=== PATIENT | female | born 1960 ===

== ENCOUNTER 2022-03-08 15:03 | Inpatient (IN) | payer MEDICARE, MEDICAID, SELFPAY ==
[2022-03-08] VITALS (17 sets, daily range): BP systolic 70–141; BP diastolic 38–80; PULSE 61–80; RESP 13–16; TEMP 36.2–37.3; O2SAT 90–97
--- NOTE | 2022-03-08 15:05 | W.PM.HP.N ---
Date of service: 03/08/22 Time of Service: 15:05 Assessment and Plan Assessment and plan (1) Septic shock: Status: Acute Assessment and plan: Due to complicated UTI, present on admission. Continue vancomcyin/zosyn initiated at [facility]. IVF. Continue norepinephrine. Await blood and urine culture results.Trend CRP and procalcitonin. (2) UTI (urinary tract infection): Status: Acute Assessment and plan: Present on admission, complicated by obstructing renal stones, s/p cysto/stent at [facility] today. Abx as above. (3) Obstructive uropathy: Status: Acute Assessment and plan: As above (4) Nephrolithiasis: Status: Chronic Assessment and plan: As above (5) Dehydration: Status: Acute Assessment and plan: IVF (6) DVT prophylaxis: Status: Acute Assessment and plan: SC heparin (7) Discharge planning issues: Status: Acute Assessment and plan: Full code Will attempt to find out re code status. Admit to ICU. Total Critical Care Time 60 minutes. History of Present Illness History of Present Illness Chief Complaint: UTI, Fever Narrative: Ms Shelton is a 61 year old female with PMHx of Down's syndrome, T2DM, psoriasis, dementia with behavioral disturbance, resident of the [facility], who is being transferred to [facility] ICU from [facility] due to lack of ICU beds for septic shock in setting of a UTI, present on admission, associated with two stones within the distal L ureter (5 mm and 6 mm) and mild left-sided hydronpehrosis and hydroureter. The patient had originally presented there with a fever of 102.6 and a BP of 84/40. The patient is s/p cystoscopy and stent by Dr Villagomez, remains hypotensive requiring vasopressors. She was initiated on vancomycin and zosyn. When I ask Dawnita if she has pain, she says yes. She does not tell me where, but does indicate she is uncomfortable when I press on her RLQ. Review of Systems All systems reviewed & are unremarkable except as noted in HPI and below PFSH All Active Problems (Updated 03/08/22 @ 17:09 by Edith Clay MD) Dehydration (Acute) Discharge planning issues (Acute) DVT prophylaxis (Acute) Nephrolithiasis (Chronic) Obstructive uropathy (Acute) UTI (urinary tract infection) (Acute) Septic shock (Acute) Urinary incontinence (Acute) Type 2 diabetes mellitus (Acute) Psoriasis (Chronic) Pain in right knee (Acute) Impairment of balance (Acute) Hypothyroidism (Chronic) Hyperlipidemia (Acute) Hyperglycemia (Acute) Hypercarbia (Acute) Falls (Acute) Dementia with behavioral disturbance (Acute) Complete trisomy 21 syndrome (Acute) Blepharitis (Acute) Surgical History (Updated 03/08/22 @ 15:46 by Edith Clay MD) H/O abdominal surgery Family History (Updated 03/08/22 @ 15:47 by Edith Clay MD) Other ALS (amyotrophic lateral sclerosis) Social History (Updated 03/08/22 @ 15:48 by Edith Clay MD) Smoking/Tobacco Use Status: Never Smoking risk assessment performed?: Yes Alcohol Intake: never Drug use: Never Exam Narrative Exam Narrative: General: Pleasant middle-aged female with Down syndrome, A&Ox1, speech impediment which makes understanding her difficult, but she is alert and speaking. Neurological: A&Ox1, no obvious focal deficits Psychiatric: Appear upbeat Skin: Visible skin dry, intact HEENT: Atraumatic, normocephalic, EOMI, dry MM, clear oropharynx, large neck diameter - hard to assess for thyromegaly or JVD, no lymphadenopathy Cardiovascular: RRR, no m/r/g Lungs: CTAB anteriorly Gastrointestinal: soft, tender in RLQ, nondistended Genitourinary: has a simms Extremities: no edema BLEs, 1+ pedal pulses B, wearing SCDs Results Imaging Additional studies: CXR 03/08/22: mild increased interstitial lung markings bilaterally with appearance most consistent with interstitial edema or CHF. No focal lung consolidation. Can not exclude a mild interstitial pneumonitis. CT chest/abdomen/pelvis w/ contrast 03/08/2022: Mediastinal adenopathy. No acute findings in the chest. There are two stones in the distal left ureter, the proximal measuring 5 mm and the adjacent more inferior stone measuring 6 mm. There is mild left-sided hydronephrosis and hydroureter. There is evidence of bowel wall thickening involving the distal sigmoid colon and rectum. No significant fat stranding. Findings may relate to an infectious, inflammatory, ischemic, or neoplastic process. Labs Labs: Labs on presentation: WBC 19.4 H/H 14.2/42.9 plts 239 Na 135 K4.6 Chloride 99 Bicarb 29 BUN 22 Cr 1.2 Glucose 193 AST 51 ALT 43 LA 2.2 UA: + leucocyte esterase + wbc + rbc + moderate bacteria COVID-19 RNA neg. Time Spent Time spent with Patient: 55-74 minutes Time was spent: preparing to see the patient(eg.review tests), obtaining and/or reviewing separately otained hiistory, ordering medications,tests, procedures, referring, communicating with other health medicare interviewer, indepentently interpreting results, counseling the patient and care coordination
[2022-03-08] MEDS: Norepinephrine in D5W 8 MG/250 ML BAG 35.063 MG IV (16:24)
[2022-03-08] MEDS: Lactated Ringers 500 ML IV (17:24)
[2022-03-08 17:31] LABS: Lactate 2.5 mmol/L (0.6-1.4)
[2022-03-08 17:32] LABS: Abs Immature Grans 0.09 10^3/uL (0.0-0.06); Absolute Lymphocyte Count 1.55 10^3/uL (1.2-3.4); Absolute Monocyte Count 0.39 10^3/uL (0.1-0.8); Basophils % 0.4; Eosinophils % 0.4; HCT 39.9 % (36.0-46.0); Immature Grans % 0.4; Lymphocytes % 6.7; MCH 34.9 pg (27.0-33.0); MCHC 32.6 % (32.0-36.0); MCV 107 fL (80-95); MPV 9.7 fL (8.0-11.0); Monocytes % 1.7; Neutrophils % 90.4; Platelet Count 200 10^3/uL (130-400); RBC 3.73 10^6/uL (3.93-5.22); RDW 15.6 % (11.7-14.6); RDW-SD 61.6 fL; WBC 23.08 10^3/uL (4.4-10.8)
[2022-03-08 17:33] LABS: Absolute Basophil Count 0.09 10^3/uL (0.0-0.2); Absolute Eosinophil Count 0.09 10^3/uL (0.0-0.7); Absolute Neutrophil Count 20.86 10^3/uL (1.2-6.7)
[2022-03-08 17:46] LABS: ALT 45 U/L (14-59); AST 41 U/L (15-37); Albumin 2.4 g/dL (3.4-5.0); Alkaline Phosphatase 138 U/L (46-116); Anion Gap 7.4 mmol/L (3-11); BUN 16 mg/dL (7-18); Bilirubin, Direct 0.2 mg/dL (0.0-0.2); Bilirubin, Total 0.5 mg/dL (0.2-1.0); C-Reactive Protein 18.86 mg/dL (0.0-0.3); CO2 25.6 mmol/L (21.0-32.0); Chloride 105 mmol/L (98-107); Glucose 133 mg/dL (74-106); Magnesium 1.7 mg/dL (1.8-2.4); Potassium 4.1 mmol/L (3.5-5.1); Sodium 138 mmol/L (136-145)
[2022-03-08 17:52] LABS: Anisocytosis 1+; Diff Comment RBC Morph Reviewed; Macrocytosis 2+; Polychromasia Present
[2022-03-08] MEDS: PIPERACILLIN/TAZO 3.375 GM in Normal Saline 50 ML IVPB (18:32)
[2022-03-08] MEDS: Lactated Ringers 1,000 ML 150 ML IV (18:38)
[2022-03-08 20:04] LABS: Lactate 1.9 mmol/L (0.6-1.4)
[2022-03-08] MEDS: MAGNESIUM SULFATE 2 GM/50 ML BAG IVPB (20:10)
[2022-03-08] MEDS: Sertraline 50 MG TAB PO (21:10)
[2022-03-08] MEDS: QUEtiapine 25 MG TAB PO (21:10)
[2022-03-08] MEDS: Donepezil 5 MG TAB PO (21:10)
[2022-03-08] MEDS: Ondansetron 4 MG/2 ML VIAL IVP (21:13)
[2022-03-08] MEDS: Ketorolac 15 MG/ML VIAL IVP (21:13)
[2022-03-08] MEDS: Memantine 5 MG TAB 10 MG PO (22:24)
[2022-03-09] VITALS (23 sets, daily range): BP systolic 96–140; BP diastolic 44–89; PULSE 59–91; RESP 10–19; TEMP 36.3–37.3; O2SAT 92–100
[2022-03-09] MEDS: PIPERACILLIN/TAZO 3.375 GM in Normal Saline 50 ML IVPB ×3 (01:18→18:27)
[2022-03-09] MEDS: VANCOMYCIN/WATER (PEG) 750 MG/150 ML BAG 150 MG IV (01:18)
[2022-03-09] MEDS: Normal Saline Flush 10 ML SYR (01:54)
[2022-03-09 06:27] LABS: Lactate 0.9 mmol/L (0.6-1.4)
[2022-03-09] MEDS: Levothyroxine 100 MCG TAB PO (06:27)
[2022-03-09] MEDS: Levothyroxine 88 MCG TAB PO (06:27)
[2022-03-09 06:35] LABS: Abs Immature Grans 0.09 10^3/uL (0.0-0.06); Basophils % 0.6; Eosinophils % 1.5; HCT 37.8 % (36.0-46.0); HGB 12.5 g/dL (11.2-15.7); Immature Grans % 0.5; Lymphocytes % 9.4; MCH 34.9 pg (27.0-33.0); MCHC 33.1 % (32.0-36.0); MCV 106 fL (80-95); MPV 9.6 fL (8.0-11.0); Monocytes % 2.2; Neutrophils % 85.8; Platelet Count 204 10^3/uL (130-400); RBC 3.58 10^6/uL (3.93-5.22); RDW 15.1 % (11.7-14.6); WBC 18.07 10^3/uL (4.4-10.8)
[2022-03-09 06:37] LABS: Absolute Basophil Count 0.11 10^3/uL (0.0-0.2); Absolute Eosinophil Count 0.27 10^3/uL (0.0-0.7)
[2022-03-09 06:54] LABS: ALT 35 U/L (14-59); AST 32 U/L (15-37); Albumin 2.2 g/dL (3.4-5.0); Alkaline Phosphatase 131 U/L (46-116); Anion Gap 7.6 mmol/L (3-11); BUN 12 mg/dL (7-18); Bilirubin, Direct 0.1 mg/dL (0.0-0.2); Bilirubin, Total 0.4 mg/dL (0.2-1.0); CO2 25.4 mmol/L (21.0-32.0); CREATININE 0.9 mg/dL (0.55-1.02); Calcium 7.9 mg/dL (8.5-10.1); Chloride 107 mmol/L (98-107); Estimated GFR 72.28 (mL/min/1.73m2); Glucose 167 mg/dL (74-106); Sodium 140 mmol/L (136-145); Total Protein 6.5 g/dL (6.4-8.2)
[2022-03-09 07:03] LABS: Magnesium 2.1 mg/dL (1.8-2.4); TSH (W/Ref FT4) 1.41 uIU/mL (0.36-3.74)
[2022-03-09 07:43] LABS: Procalcitonin 4.6 ng/mL
[2022-03-09] MEDS: Aspirin E.C. 81 MG TABEC PO (08:48)
[2022-03-09] MEDS: Memantine 5 MG TAB 10 MG PO ×2 (08:48→20:55)
--- NOTE | 2022-03-09 10:18 | PGE_ITS ---
Date of Service Date of service: 03/09/22 Time of Service: 10:18 Assessment and Plan Assessment and plan (1) Septic shock: Status: Resolved Assessment and plan: no longer in septic shock. Stable BP, U.O. adequate but marginal, creatinine and LFT ok. Cognitively she seems back to her baseline. She is now off vasopressors. I will continue iv fluids. She could be downgraded to med/surg status at this point. coninue w/ broad spectrum antibiotics (Zosyn and Vancomycin) pending her urine and blood culture results from [facility]. (2) Obstructive uropathy: Status: Acute Assessment and plan: s/p cystoureteroscopy and stenting of left distal ureter performed at [facility] by Dr. Villagomez. Will have her follow up w/ him next week after she is discharged (3) UTI (urinary tract infection): Status: Acute Assessment and plan: as above (4) Nephrolithiasis: Status: Chronic Assessment and plan: as above (5) Dehydration: Status: Acute Assessment and plan: continue LR at low rate of 85 mL/hr to maintain adequate U.O., when I am certain that she is taking enough po then can stop iv fluids (6) Type 2 diabetes mellitus: Status: Acute Assessment and plan: Bolus insulin per sliding scale per micro blood sugars before meals and at bedtime, resume diabetic diet (7) DVT prophylaxis: Status: Acute Assessment and plan: Enoxaparin 40 mg subcutaneously daily (8) Discharge planning issues: Status: Acute Subjective Subjective Interval history since last seen: Raysa denies any pain. Tolerating a regular DM diet. Urine output adequate but w/ clots, blood. She remains on zosyn and vancomycin pending blood and urine culture results from [facility]. She is s/p ureteroscopy and stenting for left distal ureteral obstruction from two stones (5 mm and 6 mm). BP is stable and she is off norepinephrine now. Exam Narrative Exam Narrative: She is alert and oriented to person; she has Down's syndrome and unable to give me much details as to her medical hx. But she is awake, watching TV and coloring in her coloring book Lungs: clear to auscultation Heart: RRR w/o murmur or rub Abdomen: soft, nontender Flanks: no CVA tenderness Legs/feet: no edema or pain Guzman w/ dark reddish brown urine w/ clots Objective Last Vital Signs Temp 36.5 C 03/09/22 08:00 Pulse 75 03/09/22 09:00 Resp 14 03/09/22 09:00 BP 115/62 03/09/22 09:00 Pulse Ox 97 03/09/22 09:00 Laboratory Results - last 24 hr 03/08/22 03/08/22 03/08/22 17:23 17:23 17:23 WBC 23.08 H RBC 3.73 L Hgb 13.0 Hct 39.9 MCV 107 H MCH 34.9 H MCHC 32.6 RDW 15.6 H Plt Count 200 MPV 9.7 Immature Gran % 0.4 Neutrophils % 90.4 Lymphocytes % 6.7 Monocytes % 1.7 Eosinophils % 0.4 Basophils % 0.4 Nucleated RBC % 0.0 Absolute Neutrophils 20.86 H Absolute Lymphocytes 1.55 Absolute Monocytes 0.39 Absolute Eosinophils 0.09 Absolute Basophils 0.09 RBC Morphology See Below Polychromasia Present Anisocytosis 1+ Macrocytosis 2+ VBG Lactate 2.5 H* Sodium 138 Potassium 4.1 Chloride 105 Carbon Dioxide 25.6 Anion Gap 7.4 BUN 16 Creatinine 1.0 Est GFR (CKD-EPI 2020) 63.70 Glucose 133 H Calcium 8.0 L Magnesium 1.7 L Total Bilirubin 0.5 Conjugated Bilirubin 0.2 AST 41 H ALT 45 Alkaline Phosphatase 138 H C-Reactive Protein 18.86 H Total Protein 7.0 Albumin 2.4 L Procalcitonin TSH 03/08/22 03/09/22 03/09/22 19:59 06:16 06:16 WBC RBC Hgb Hct MCV MCH MCHC RDW Plt Count MPV Immature Gran % Neutrophils % Lymphocytes % Monocytes % Eosinophils % Basophils % Nucleated RBC % Absolute Neutrophils Absolute Lymphocytes Absolute Monocytes Absolute Eosinophils Absolute Basophils RBC Morphology Polychromasia Anisocytosis Macrocytosis VBG Lactate 1.9 H Sodium Potassium Chloride Carbon Dioxide Anion Gap BUN Creatinine Est GFR (CKD-EPI 2020) Glucose Calcium Magnesium 2.1 Total Bilirubin Conjugated Bilirubin AST ALT Alkaline Phosphatase C-Reactive Protein Total Protein Albumin Procalcitonin 4.6 TSH 1.41 03/09/22 03/09/22 03/09/22 06:16 06:16 06:16 WBC 18.07 H RBC 3.58 L Hgb 12.5 Hct 37.8 MCV 106 H MCH 34.9 H MCHC 33.1 RDW 15.1 H Plt Count 204 MPV 9.6 Immature Gran % 0.5 Neutrophils % 85.8 Lymphocytes % 9.4 Monocytes % 2.2 Eosinophils % 1.5 Basophils % 0.6 Nucleated RBC % 0.0 Absolute Neutrophils 15.50 H Absolute Lymphocytes 1.70 Absolute Monocytes 0.40 Absolute Eosinophils 0.27 Absolute Basophils 0.11 RBC Morphology Polychromasia Anisocytosis Macrocytosis VBG Lactate 0.9 Sodium 140 Potassium 4.0 Chloride 107 Carbon Dioxide 25.4 Anion Gap 7.6 BUN 12 Creatinine 0.9 Est GFR (CKD-EPI 2020) 72.28 Glucose 167 H Calcium 7.9 L Magnesium Total Bilirubin 0.4 Conjugated Bilirubin 0.1 AST 32 ALT 35 Alkaline Phosphatase 131 H C-Reactive Protein Total Protein 6.5 Albumin 2.2 L Procalcitonin TSH Time Spent with Patient Time Spent with Patient: 35-49 minutes Time was spent: preparing to see the patient(eg.review tests), obtaining and/or reviewing separately otained hiistory, ordering medications,tests, procedures, referring, communicating with other health animal caretaker supervisor, indepentently interpreting results and care coordination
[2022-03-09] MEDS: Lactated Ringers 1,000 ML 80 ML IV (11:15)
[2022-03-09] MEDS: Enoxaparin 40 MG/0.4 ML SYR SC (12:20)
[2022-03-09 14:25] LABS: Source Nasal/Nares
[2022-03-09 14:58] LABS: COVID-19 PCR Negative (Negative)
[2022-03-09] MEDS: VANCOMYCIN/WATER (PEG) 750 MG/150 ML BAG 100 MG IV (14:59)
--- NOTE | 2022-03-09 15:41 | PDOC.CMIN ---
- If Service Date Differs Date of service: 03/09/22 Time of Service: 15:41 Care Management Initial Assess REASON FOR HOSPITALIZATION:: Septic shock complicated UTI, obstructive uropathy PAST MEDICAL HISTORY/PAST SURGICAL HISTORY:: All Active Problems. Dehydration (Acute). Discharge planning issues (Acute). DVT prophylaxis (Acute). Nephrolithiasis (Chronic). Obstructive uropathy (Acute). UTI (urinary tract infection) (Acute). Septic shock (Acute). Urinary incontinence (Acute). Type 2 diabetes mellitus (Acute). Psoriasis (Chronic). Pain in right knee (Acute). Impairment of balance (Acute). Hypothyroidism (Chronic). Hyperlipidemia (Acute). Hyperglycemia (Acute). Hypercarbia (Acute). Falls (Acute). Dementia with behavioral disturbance (Acute). Complete trisomy 21 syndrome (Acute). Blepharitis (Acute). Surgical History. H/O abdominal surgery PREVIOUS FUNCTIONAL STATUS/SOCIAL/FAMILY SUPPORTS:: Raysa lives at [facility] in [place], where she receives all of her care. Her guardian is her brother, Gilberto Shelton. CURRENT FUNCTIONAL STATUS:: Raysa was sitting up in her bed when CM met with her. She engaged with eye contact during conversation, and answered some questions. She was coloring with crayons, and appeared to be enjoying that activity. Per RN, her brother called this morning and spoke to her over the phone. Her RN also communicated with staff from [facility]. Once she is medically cleared for discharge, CM will coordinate her return to [facility]. CM will continue to follow. ADVANCE DIRECTIVES:: Not on file at [facility]. Has patient been provided with info about the portal/API?: No Did the patient sign up for the portal?: No CODE STATUS:: Full Code INSURANCE COVERAGE / FINANCIAL ISSUES:: [facility] CURRENT HOME/COMMUNITY SERVICES/EQUIPMENT:: Resides at [facility]. PRIMARY CARE PHYSICIAN:: Facility provider, [facility] POTENTIAL DISCHARGE NEEDS:: Coordinated return to [facility]. PATIENT/FAMILY EDUCATION NEEDS:: Review discharge instructions with facility through RN to RN prior to discharge, as well as guardian. ANTICIPATED BARRIERS TO DISCHARGE:: None identified at this time. TRANSPORTATION:: To be determined, based on mobility at time of discharge. PLAN:: Anticipate Raysa will return to [facility] once medically cleared. She will transport via EMS vs [facility] W[facility] van, depending on presentation. She will follow up with facility providers and discharge plan of care. CM will continue to follow.
[2022-03-09] MEDS: QUEtiapine 25 MG TAB PO (20:56)
[2022-03-09] MEDS: Donepezil 5 MG TAB PO (20:56)
[2022-03-09] MEDS: Sertraline 50 MG TAB PO (20:56)
[2022-03-09] MEDS: Ketorolac 15 MG/ML VIAL IVP (20:56)
[2022-03-10] MEDS: PIPERACILLIN/TAZO 3.375 GM in Normal Saline 50 ML IVPB (02:00)
[2022-03-10 05:00] VITALS: BP 115/84; PULSE 91; RESP 19; TEMP 37.5; O2SAT 95
[2022-03-10] MEDS: Levothyroxine 88 MCG TAB PO (06:01)
[2022-03-10] MEDS: Levothyroxine 100 MCG TAB PO (06:01)
[2022-03-10 06:46] LABS: Abs Immature Grans 0.05 10^3/uL (0.0-0.06); Absolute Basophil Count 0.08 10^3/uL (0.0-0.2); Absolute Lymphocyte Count 1.41 10^3/uL (1.2-3.4); Absolute Monocyte Count 0.27 10^3/uL (0.1-0.8); Basophils % 0.6; Eosinophils % 0.5; HCT 36.3 % (36.0-46.0); HGB 11.6 g/dL (11.2-15.7); Immature Grans % 0.4; MCV 107 fL (80-95); MPV 10.4 fL (8.0-11.0); Monocytes % 2.1; Neutrophils % 85.4; Nucleated RBC 0.2 % (0.0-0.3); Platelet Count 194 10^3/uL (130-400); RBC 3.41 10^6/uL (3.93-5.22); RDW 15.4 % (11.7-14.6); RDW-SD 60.6 fL
[2022-03-10 06:54] LABS: Absolute Eosinophil Count 0.06 10^3/uL (0.0-0.7); Absolute Neutrophil Count 10.93 10^3/uL (1.2-6.7)
[2022-03-10 06:55] LABS: ALT 35 U/L (14-59); AST 30 U/L (15-37); Albumin 2.1 g/dL (3.4-5.0); Alkaline Phosphatase 208 U/L (46-116); BUN 16 mg/dL (7-18); Bilirubin, Total 0.4 mg/dL (0.2-1.0); CREATININE 1.1 mg/dL (0.55-1.02); Calcium 7.9 mg/dL (8.5-10.1); Chloride 105 mmol/L (98-107); Estimated GFR 56.81 (mL/min/1.73m2); Glucose 176 mg/dL (74-106); Potassium 4.2 mmol/L (3.5-5.1); Sodium 137 mmol/L (136-145); Total Protein 6.7 g/dL (6.4-8.2)
[2022-03-10 08:00] VITALS: BP 124/63; PULSE 91; PULSE 98; RESP 15; TEMP 37.3; O2SAT 92
[2022-03-10] MEDS: Aspirin E.C. 81 MG TABEC PO (08:43)
[2022-03-10] MEDS: Memantine 5 MG TAB 10 MG PO ×2 (08:43→20:45)
--- NOTE | 2022-03-10 09:45 | W.PM.PROGNOT ---
Date of Service Date of service: 03/10/22 Time of Service: 09:45 Assessment and Plan Assessment and plan (1) Septic shock: Status: Resolved Assessment and plan: No longer in shock. She has a stable blood pressures been off vasopressors for over 24 hours. Patient was written to be transferred to medical/surgical floor yesterday however due to lack of staffing she is remained in the intensive care unit as a medical/surgical floor patient. She remains on Zosyn pending sensitivity results of her urine and blood cultures from [facility]. Vancomycin was discontinued. Professional time spent interviewing and examining patient, discussion of goals of care with hospital team (care management, nursing and consulting professionals) was 20 minutes. (2) Obstructive uropathy: Status: Acute Assessment and plan: s/p cystoureteroscopy and stenting of left distal ureter performed at [facility] by Dr. Villagomez. We will asked Dr. Nick to evaluate the patient given her continued hematuria (3) UTI (urinary tract infection): Status: Acute Assessment and plan: as above (4) Nephrolithiasis: Status: Chronic Assessment and plan: as above (5) Dehydration: Status: Resolved Assessment and plan: We will discontinue her IV fluids as she is having an urine output and taking an good oral fluid intake (6) Type 2 diabetes mellitus: Status: Acute Assessment and plan: Bolus insulin per sliding scale per micro blood sugars before meals and at bedtime, resume diabetic diet (7) DVT prophylaxis: Status: Acute Assessment and plan: Enoxaparin 40 mg subcutaneously daily (8) Discharge planning issues: Status: Acute Assessment and plan: Return to [facility] once she is medically stable Subjective Subjective Interval history since last seen: Patient did well overnight no acute complaints. Patient is tolerating her diet but does require frequent cueing to chew her food and swallow be for taking another bite. Only respiratory issues overnight is that she does seem to have some sleep apnea and when she is not wearing her oxygen her pulse oximetry will drop down into the high 60s and low 70s. Because of her Down syndrome she frequently pulls off her pulse oximetry and nursing has been unable to keep a peripheral IV in. Patient does have a left subclavian central line from when she presented with septic shock. Patient continues to receive antibiotics including Zosyn for E. coli sepsis secondary to complicated UTI from recent ureteroscopy to remove left distal ureteral stones. As of yesterday blood culture results are still pending. All cultures were obtained at [facility] where she had her cystoscopy ureteroscopy by Dr. Villagomez. Patient continues to have bloody drainage from her urinary catheter. Exam Narrative Exam Narrative: Middle-aged white female with Down's facies she is alert oriented to person she is able to express her wishes as far as her food choices. She is feeding herself and seems to be tolerating regular foods. Lungs with some fine bibasilar rales no rhonchi or wheezing Heart is regular rate and rhythm Abdomen soft nontender nondistended Extremities without peripheral edema Objective Last Vital Signs Temp 37.3 C 03/10/22 08:00 Pulse 91 H 03/10/22 08:00 Resp 15 03/10/22 08:00 BP 124/63 03/10/22 08:00 Pulse Ox 92 03/10/22 08:00 Laboratory Results - last 24 hr 03/09/22 03/10/22 03/10/22 01:13 05:50 05:50 WBC 12.80 H RBC 3.41 L Hgb 11.6 Hct 36.3 MCV 107 H MCH 34.0 H MCHC 32.0 RDW 15.4 H Plt Count 194 MPV 10.4 Immature Gran % 0.4 Neutrophils % 85.4 Lymphocytes % 11.0 Monocytes % 2.1 Eosinophils % 0.5 Basophils % 0.6 Nucleated RBC % 0.2 Absolute Neutrophils 10.93 H Absolute Lymphocytes 1.41 Absolute Monocytes 0.27 Absolute Eosinophils 0.06 Absolute Basophils 0.08 Sodium 137 Potassium 4.2 Chloride 105 Carbon Dioxide 26.0 Anion Gap 6.0 BUN 16 Creatinine 1.1 H Est GFR (CKD-EPI 2020) 56.81 Glucose 176 H Calcium 7.9 L Total Bilirubin 0.4 AST 30 ALT 35 Alkaline Phosphatase 208 H Total Protein 6.7 Albumin 2.1 L COVID-19 Source Nasal/Nares SARS-CoV-2 (PCR) Negative Time Spent with Patient Time Spent with Patient: <25 minutes Time was spent: preparing to see the patient(eg.review tests), obtaining and/or reviewing separately otained hiistory, ordering medications,tests, procedures, indepentently interpreting results and care coordination
[2022-03-10] MEDS: PIPERACILLIN/TAZO 4.5 GM in Normal Saline 100 ML IVPB ×2 (11:22→17:56)
[2022-03-10 12:00] VITALS: BP 90/49; PULSE 73; RESP 16; TEMP 35.3; O2SAT 88
[2022-03-10] MEDS: Enoxaparin 40 MG/0.4 ML SYR SC (12:19)
[2022-03-10] MEDS: Insulin Aspart 300 UNITS/3 ML PEN SC ×3 (12:20→22:29)
[2022-03-10 15:00] VITALS: PULSE 77
[2022-03-10 16:00] VITALS: BP 108/56; PULSE 85; RESP 19; TEMP 35.9; O2SAT 91
[2022-03-10] MEDS: Furosemide 20 MG/2 ML VIAL IVP (17:31)
[2022-03-10] MEDS: Albuterol 2.5 MG/3 ML INH SOLN VIAL UPD (18:45)
[2022-03-10] MEDS: Donepezil 5 MG TAB PO (20:45)
[2022-03-10] MEDS: Ketorolac 15 MG/ML VIAL IVP (20:45)
[2022-03-10] MEDS: Sertraline 50 MG TAB PO (20:45)
[2022-03-10] MEDS: QUEtiapine 25 MG TAB PO (20:46)
[2022-03-11] VITALS (24 sets, daily range): BP systolic 89–132; BP diastolic 36–96; PULSE 68–113; RESP 8–30; TEMP 35.9–36.8; O2SAT 79–97
[2022-03-11] MEDS: PIPERACILLIN/TAZO 4.5 GM in Normal Saline 100 ML IVPB (02:32)
[2022-03-11] MEDS: Levothyroxine 88 MCG TAB PO (06:31)
[2022-03-11] MEDS: Levothyroxine 100 MCG TAB PO (06:31)
[2022-03-11 06:35] LABS: Abs Immature Grans 0.06 10^3/uL (0.0-0.06); Absolute Basophil Count 0.08 10^3/uL (0.0-0.2); Absolute Lymphocyte Count 1.23 10^3/uL (1.2-3.4); Absolute Neutrophil Count 9.03 10^3/uL (1.2-6.7); Basophils % 0.7; Eosinophils % 1.7; HCT 34.9 % (36.0-46.0); HGB 11.4 g/dL (11.2-15.7); Immature Grans % 0.6; Lymphocytes % 11.3; MCH 34.5 pg (27.0-33.0); MCHC 32.7 % (32.0-36.0); MCV 106 fL (80-95); MPV 10.1 fL (8.0-11.0); Monocytes % 2.8; Neutrophils % 82.9; Platelet Count 181 10^3/uL (130-400); RDW-SD 58.4 fL; WBC 10.89 10^3/uL (4.4-10.8)
[2022-03-11 06:37] LABS: Absolute Eosinophil Count 0.19 10^3/uL (0.0-0.7)
[2022-03-11 06:46] LABS: Anion Gap 4.7 mmol/L (3-11); BUN 18 mg/dL (7-18); CO2 28.3 mmol/L (21.0-32.0); Chloride 105 mmol/L (98-107); Glucose 164 mg/dL (74-106); Potassium 4.2 mmol/L (3.5-5.1); Sodium 138 mmol/L (136-145)
[2022-03-11 07:39] LABS: Procalcitonin 2.5 ng/mL
--- NOTE | 2022-03-11 08:36 | CMPROGNOTE_ITS ---
- If Service Date Differs Date of service: 03/11/22 Time of Service: 08:36 Care Management Progress Note S/O:Raysa is in the ICU although she is Med-surg status. Her blood pressures have been low with SBP in the 80s and 90s. Raysa remains confused and will only answer simple questions. When CM met with her she smiled but only gave one word answers to questions. She did tell CM and her nurse that she had to go to the bathroom, but has a simms catheter. After being hypotensive last night, Raysa was given a fluid bolus, after which her oxygen needs increased and her O2 satsl dropped into the high 80s. A chest Xray has been ordered. A: Raysa is a 61 year old woman admitted on 03/08/22 with septic shock and Uti P:Anticipate Raysa will return to [facility] once medically cleared. She will transport via EMS vs [facility] W[facility] van, depending on presentation. She will follow up with facility providers and discharge plan of care. CM will continue to follow.
[2022-03-11] MEDS: Memantine 5 MG TAB 10 MG PO ×2 (08:52→21:13)
[2022-03-11] MEDS: Aspirin E.C. 81 MG TABEC PO (08:52)
[2022-03-11] MEDS: Lactated Ringers 500 ML IV (08:53)
--- NOTE | 2022-03-11 09:04 | W.PM.PROGNOT ---
Date of Service Date of service: 03/11/22 Time of Service: 09:04 Assessment and Plan Assessment and plan (1) Obstructive uropathy: Status: Acute Assessment and plan: s/p cystoureteroscopy and stenting of left distal ureter performed at [facility] by Dr. Villagomez. As her hematuria is improving and she has good urine output and already has her stents, I see no need for consult w/ Dr. Nick at present. Patient can follow up w/ Dr. Villagomez at [facility] upon return to [facility]. Professional time spent interviewing and examining patient, discussion of goals of care with hospital team (care management, nursing and consulting professionals) was 35 minutes. (2) UTI (urinary tract infection): Status: Acute Assessment and plan: Patient presented in sepsis and was on vasopressors on admission but has been off vasopressors since 03/09. her BP was slightly low overnight but probably d/t inappropriate diuretic last night. I have ordered 500 mL bolus of LR this morning. She remains on Zosyn for E. coli UTI from ureterolithiasis causing left distal ureteral obstruction which has been relieved w/ cystourteroscopy and stent. I have asked nursing to obtain the finalized urine and blood cultures from [facility] so I can switch her to oral antibiotics upon discharge to [facility]. I would keep her on parenteral antibiotics for 7 days or until her inflammatory markers have normalized then complete oral antibiotics for total of 10 to 14 days. (3) Nephrolithiasis: Status: Chronic Assessment and plan: as above (4) Type 2 diabetes mellitus: Status: Acute Assessment and plan: Bolus insulin per sliding scale per micro blood sugars before meals and at bedtime, resume diabetic diet (5) DVT prophylaxis: Status: Acute Assessment and plan: Enoxaparin 40 mg subcutaneously daily (6) Discharge planning issues: Status: Acute Assessment and plan: Return to [facility] once she is medically stable and completed iv antibiotics. I anticipate discharge latter part of this week, i.e. or Friday. Subjective Subjective Interval history since last seen: Raysa had soft BP overnight w/ MAP of 60, SBP high 80's to low 90's. She did get one time dose of lasix yesterday evening for low U.O. and reported wet sounding lungs per nursing. Patient does require oxygen when sleeping, she likely has JESSICA/OHS. During the day she does not require oxygen supplementation when she is awake. We are awaiting final sensitivity on her urine culture from [facility] and her blood culture was still pending. Her inflammatory markers are improving but are still elevated (procalcitonin of 2.5, WBC 10,890). She remains on Zosyn, although I stopped her Vancomycin over the weekend. Exam Narrative Exam Narrative: Raysa has no acute complaints. She ate well for breakfast She is alert and oriented to person Lungs: clear Heart: RRR Abdomen: obese, soft, nontender, she had large soft light brown BM this morning Buttocks/sacral skin is intact Guzman is starting to clear, still some clots/debris but more yellow, not the pink/red color it was over the weekend Objective Last Vital Signs Temp 36.6 C 03/11/22 06:37 Pulse 76 03/11/22 07:50 Resp 15 03/11/22 07:50 BP 89/46 L 03/11/22 07:50 Pulse Ox 96 03/11/22 07:50 Laboratory Results - last 24 hr 03/11/22 03/11/22 03/11/22 06:15 06:15 06:15 WBC 10.89 H RBC 3.30 L Hgb 11.4 Hct 34.9 L MCV 106 H MCH 34.5 H MCHC 32.7 RDW 15.0 H Plt Count 181 MPV 10.1 Immature Gran % 0.6 Neutrophils % 82.9 Lymphocytes % 11.3 Monocytes % 2.8 Eosinophils % 1.7 Basophils % 0.7 Nucleated RBC % 0.0 Absolute Neutrophils 9.03 H Absolute Lymphocytes 1.23 Absolute Monocytes 0.30 Absolute Eosinophils 0.19 Absolute Basophils 0.08 Sodium 138 Potassium 4.2 Chloride 105 Carbon Dioxide 28.3 Anion Gap 4.7 BUN 18 Creatinine 1.0 Est GFR (CKD-EPI 2020) 63.70 Glucose 164 H Calcium 8.0 L Procalcitonin 2.5 Time Spent with Patient Time Spent with Patient: 35-49 minutes Time was spent: preparing to see the patient(eg.review tests), ordering medications,tests, procedures, referring, communicating with other health manager critical care unit, indepentently interpreting results and care coordination
--- NOTE | 2022-03-11 09:48 | PHA.REVIEW2 ---
Pharmacy Admission Review - Admission Clinical Review Discharge planning issues (Acute) DVT prophylaxis (Acute) Obstructive uropathy (Acute) UTI (urinary tract infection) (Acute) Type 2 diabetes mellitus (Acute) No Known Allergies Allergy (Unverified 03/08/22 19:58) Resuscitation Status Full Code Height 4 ft 9 in Weight 102.1 kg - Renal Dosing Renal Dosing: BUN 18 mg/dL (7-18) 03/11/22 06:15 Creatinine 1.0 mg/dL (0.55-1.02) 03/11/22 06:15 Medications needing adjustments: Reviewed List of meds needing interventions: eCrCl 56 ml/min - Anticoagulation Anticoagulation: Hgb 11.4 g/dL (11.2-15.7) 03/11/22 06:15 Hct 34.9 % (36.0-46.0) L 03/11/22 06:15 Plt Count 181 10^3/uL (130-400) 03/11/22 06:15 Creatinine 1.0 mg/dL (0.55-1.02) 03/11/22 06:15 DVT Prophylaxis: Reviewed Medications: Enoxaparin - Opiate Usage Evaluate Pain Scale/Pains Meds: N/A - Relevant Labs Sodium 138 mmol/L (136-145) 03/11/22 06:15 Potassium 4.2 mmol/L (3.5-5.1) 03/11/22 06:15 Chloride 105 mmol/L (98-107) 03/11/22 06:15 Magnesium 2.1 mg/dL (1.8-2.4) 03/09/22 06:16 C-Reactive Protein 18.86 mg/dL (0.0-0.3) H 03/08/22 17:23 Electrolytes, C-Reactive P, ESR: Reviewed - DM Control DM Control: Glucose 164 mg/dL (74-106) H 03/11/22 06:15 Finger Stick Blood Glucose 129 Finger Stick Blood Glucose 149 DM Control: Reviewed (aspart per SS (sensitive)) - Cardiac Review BP, HR, EF%: Reviewed - Qtc Review QTc: N/A - IV to PO Switch IV Medications: Reviewed (plan on IV antibiotics (zosyn) for 7 days before changing to PO) - Home Meds Home Med List reviewed: Reviewed Relevent Home Meds Not ordered & why?: from [facility], all ordered - Current meds Current Medication Order Review: Reviewed (Zosyn was started on 03/08, today is day 4)
[2022-03-11] MEDS: Enoxaparin 40 MG/0.4 ML SYR SC (12:02)
[2022-03-11] MEDS: cefTRIAXone 2 GM/50 ML BAG IVPB (12:02)
[2022-03-11] MEDS: Insulin Aspart 300 UNITS/3 ML PEN SC ×3 (12:21→21:15)
[2022-03-11] MEDS: Albuterol 2.5 MG/3 ML INH SOLN VIAL UPD (13:04)
--- NOTE | 2022-03-11 13:28 | DI.RAD_ITS ---
Exam(s) XR PORTABLE CHEST AP EXAM: XR PORTABLE CHEST AP CLINICAL HISTORY: hypoxia TECHNIQUE: 2D digital imaging was performed of the chest. One image was obtained. An AP view was ob tained. COMPARISON: No exams were available for comparison FINDINGS: MEDIASTINUM: Normal. HEART: Upper limits of normal to mildly enlarged. PULMONARY VASCULATURE: The pulmonary vasculature is indistinct. LUNGS: Bilateral interstitial infiltrates are present. PLEURAL SPACE: There is blunting of the right costophrenic angle suggesting a right pleural effusion. No definite left pleural effusion is seen. No pneumothorax is present. BONE:Within normal limits for the patient's age. OTHER FINDINGS:Normal. IMPRESSION: Congestive heart failure versus pneumonia. Please correlate clinically. DATA REPOSITORY: RADIATION DOSE DELIVERED:
[2022-03-11 13:53] LABS: BE 1 mmol/L (-2-3); HCO3 26 mmol/L (22-26); pCO2 40 mmHg (35-45); pH 7.42 (7.35-7.45); pO2 59 mmHg (80-105); sO2 92 % (95-98); tCO2 23 mmol/L (23-27)
[2022-03-11 13:55] LABS: FIO2L 6 L; Site Right Radial
[2022-03-11 13:58] LABS: D-Dimer 1899 ng/mlFEU (<500)
--- NOTE | 2022-03-11 14:15 | DI.CT_ITS ---
Exam(s) CT CHEST PE CTA EXAM: CT CHEST PE CTA CLINICAL HISTORY: dyspnea, hypoxia, elevated d-dimer. TECHNIQUE: Imaging Protocol: Axial CT angiography was performed with multi-slice acquisition and mu lti-planar and/or 3D reconstructions. CONTRAST MATERIAL: Intravenous: Omnipaque 350 contrast volume:100 mL COMPARISON: CR XR PORTABLE CHEST AP from 03/11/2022 FINDINGS: The examination is limited due to patient motion artifact. Tracheobronchial tree: Patent where visualized. Pulmonary parenchyma: Multifocal infiltrates are present. There are moderately large bilateral pleur al effusions and subjacent infiltrates which may represent atelectasis or pneumonia. No architectura l distortion. Pulmonary Arteries: No evidence of filling defect to suggest pulmonary emboli. Mediastinum and Radha: No dominant adenopathy or fluid collection. The esophagus is unremarkable. Visualized thyroid gland: Unremarkable. Pleura: No pneumothorax. Heart: Mildly enlarged. No coronary artery calcifications are seen. No pericardial effusion. Aorta: Thoracic aorta non-dilated. No evidence of dissection. Mild atherosclerosis. Upper abdomen: Unremarkable. Tubes, Catheters, and Lines: The tip of the central venous catheter is in good position in the superi or vena cava. Soft tissues: There is mild edema in the soft tissues around the abdomen. Bones: Within normal limits for the patient's age. IMPRESSION: 1. No evidence of pulmonary embolism, thoracic aortic dissection or aneurysm. 2. Mild cardiomegaly and large bilateral pleural effusions suspicious for congestive heart failure. 3. Bilateral pulmonary infiltrates. Differential considerations include pulmonary edema or pneumonia . Please correlate clinically. 4. Findings were discussed with Dr. Foster at 4:35 p.m. on 03/11/2022. RADIATION DOSE DELIVERED: Total DLP DATA REPOSITORY: All CT scans at this facility are submitted to the National Radiology Data Registry (NRDR) Dose Index Registry (DIR) with the [employer] (A[employer]). RADIATION OPTIMIZATION: All CT scans at this facility use at least one of these dose optimization te chniques: automated exposure control; mA and/or kV adjustment per patient size (includes targeted exa ms where dose is matched to clinical indication); or iterative reconstruction.
--- NOTE | 2022-03-11 14:45 | RT.EKG_ITS ---
APPROVED REPORT Exam: Resting ECG Reason for Exam: dyspnea, hypoxemia Patient Location: I HR:101 bpm ECG Measurements Heart Rate 101 AXIS VT 167 P 61 QRSd 86 QRS 85 QT 367 T -6 QTc 476 Conclusion Sinus tachycardia...rate> 99 Probable left atrial enlargement...P >50mS, <-0.10mV V1 Borderline right axis deviation...QRS axis ( 81, 90) Borderline T abnormalities, anterior leads...T flat or neg, V2-V4
[2022-03-11] MEDS: Normal Saline Flush 10 ML SYR ×3 (14:53→18:18)
[2022-03-11 15:26] LABS: NT-proBNP 2645 pg/mL (<300)
[2022-03-11 15:32] LABS: Troponin I 112 ng/L (<or=60)
[2022-03-11] MEDS: Furosemide 40 MG/4 ML VIAL IVP ×2 (15:42→21:12)
--- NOTE | 2022-03-11 15:57 | W.EVENT ---
Date of service: 03/11/22 Time of Service: 15:57 Event Note: Raysa has had problems through the day w/ worsening hypoxemia. She had issues w/ nocturnal hypoxemia felt to be d/t JESSICA/OSH and as long as she kept her oxygen on low flow she did fine. However, she has had hypxoxemia through the day even while awake and has had higher flow nasal cannula and face mask to keep her oxygen levels at or near 90% Exam: she does not appear to be in respiratory distress Lungs: she has bibasilar to 1/3 up the bases w/ rales; no rhonchi Heart: regular Abdomen: soft, nontender Hands w/ slight edema but no edema of feet/legs CXR w/ B/L diffuse but more predominantly lower lobe infiltrates, possible CHF vs pneumonia EKG no ischemia, NSR BNP 2645 and troponin I @ 112 I think that she is volume overloaded, possible secondary to her intial resuscitation from her sepsis, however I can not exclude ACS. She is not in any pain. I will cycle her troponin to see if this is demand ischemia. I will check echo in the am and in the interim, diureses her overnight. She is already on antibiotics, Rocephin 2 gm for E. coli sepsis from her left ureteral stones/obstruction which was relieved w/ cystourteroscopy and stent by Dr. Villagomez at [facility] prior to her transfer to [facility] on 03/08 Time Spent with Patient Time spent in critical care(minutes): 45 Time Spent Included: Coordination of care, Chart review, Documenting critically ill care, Time at immediate bedside and Discussing critically ill care with other medical staff
[2022-03-11 18:29] LABS: Troponin I 122 ng/L (<or=60)
[2022-03-11] MEDS: Sertraline 50 MG TAB PO (21:12)
[2022-03-11] MEDS: QUEtiapine 25 MG TAB PO (21:12)
[2022-03-11] MEDS: Donepezil 5 MG TAB PO (21:13)
[2022-03-12] VITALS (56 sets, daily range): BP systolic 87–137; BP diastolic 45–88; PULSE 68–92; RESP 16–32; TEMP 36–37.2; O2SAT 84–99
[2022-03-12] MEDS: Furosemide 40 MG/4 ML VIAL IVP (05:42)
[2022-03-12] MEDS: Levothyroxine 88 MCG TAB PO (05:43)
[2022-03-12] MEDS: Levothyroxine 100 MCG TAB PO (05:43)
--- NOTE | 2022-03-12 07:15 | RT.EKG_ITS ---
APPROVED REPORT Exam: Resting ECG Reason for Exam: elevated troponin Patient Location: I HR:78 bpm ECG Measurements Heart Rate 78 AXIS VA 165 P 52 QRSd 94 QRS 69 QT 422 T 26 QTc 481 Conclusion Sinus rhythm...normal P axis, V-rate 50- 99 Probable anterior infarct, age indeterminate...Q >35mS, T neg, V2-V5
[2022-03-12] MEDS: Normal Saline Flush 10 ML SYR IVP ×4 (07:37→21:16)
[2022-03-12 07:50] LABS: Abs Immature Grans 0.04 10^3/uL (0.0-0.06); Absolute Basophil Count 0.07 10^3/uL (0.0-0.2); Absolute Eosinophil Count 0.12 10^3/uL (0.0-0.7); Absolute Lymphocyte Count 1.29 10^3/uL (1.2-3.4); Absolute Monocyte Count 0.33 10^3/uL (0.1-0.8); Absolute Neutrophil Count 8.15 10^3/uL (1.2-6.7); Basophils % 0.7; Eosinophils % 1.2; HCT 33.2 % (36.0-46.0); HGB 10.9 g/dL (11.2-15.7); Immature Grans % 0.4; Lymphocytes % 12.9; MCHC 32.8 % (32.0-36.0); MCV 103 fL (80-95); MPV 10.4 fL (8.0-11.0); Monocytes % 3.3; Neutrophils % 81.5; Platelet Count 208 10^3/uL (130-400); RBC 3.21 10^6/uL (3.93-5.22); RDW 14.6 % (11.7-14.6); RDW-SD 55.5 fL
[2022-03-12] MEDS: Normal Saline Flush 10 ML SYR (07:58)
[2022-03-12] MEDS: Insulin Aspart 300 UNITS/3 ML PEN SC ×3 (08:14→21:15)
[2022-03-12 08:16] LABS: Anion Gap 2.7 mmol/L (3-11); BUN 12 mg/dL (7-18); CO2 34.3 mmol/L (21.0-32.0); Calcium 8.5 mg/dL (8.5-10.1); Chloride 97 mmol/L (98-107); Glucose 162 mg/dL (74-106); NT-proBNP 3608 pg/mL (<300); Potassium 3.7 mmol/L (3.5-5.1); Sodium 134 mmol/L (136-145)
[2022-03-12 08:19] LABS: Troponin I 78 ng/L (<or=60)
--- NOTE | 2022-03-12 08:21 | PGE_ITS ---
Date of Service Date of service: 03/12/22 Time of Service: 08:21 Assessment and Plan Assessment and plan (1) Volume overload: Status: Acute Assessment and plan: Presumed volume overload secondary to IV fluid resuscitation associated with treatment of her sepsis and septic shock. However in light of her elevated troponins cannot exclude possibility that she may have had CHF. We will get an echocardiogram today to evaluate her LV and RV function. In the interim we will continue IV diuretics. Wean her oxygen as tolerated. Professional time spent interviewing and examining patient, discussion of goals of care with hospital team (care management, nursing and consulting professionals) was 40 minutes. (2) Elevated troponin I level: Status: Acute Assessment and plan: Presumed to be type II demand ischemia associated with sepsis and volume overload however will check echocardiogram particularly since her EKG shows some nonspecific T wave changes in the anterior leads. Patient remains on an aspirin depending on echocardiogram results we may need to add an PATRICE inhibitor or an ARB. We will continue IV diuretics until she is euvolemic. (3) Mobitz type I Wenckebach atrioventricular block: Status: Acute Assessment and plan: No more witnessed AV block; this was associated w/ eating this past weekend prior to her hypoxia and was assumed to be d/t vagal response. Her LA on today's EKG is normal at 1645 msec. She has no AV conduction abnormalites on her EKG. QRS duration is 94 msec and her QTC is 481 msec (4) Obstructive uropathy: Status: Acute Assessment and plan: s/p cystoureteroscopy and stenting of left distal ureter performed at [facility] by Dr. Villagomez. As her hematuria is improving and she has good urine output and already has her stents, I see no need for consult w/ Dr. Nick at present. Patient can follow up w/ Dr. Villagomez at [facility] upon return to [facility]. (5) UTI (urinary tract infection): Status: Acute Assessment and plan: Patient presented in sepsis and was on vasopressors on admission but has been off vasopressors since 03/09. She was initially treated with Zosyn and vancomycin however her urine cultures grew E. coli which was sensitive to ceftriaxone. She is currently on ceftriaxone 2 g IV daily. We will plan for at least 7 days and as long as 10 days for her parenteral antibiotics. If her procalcitonin normalizes we could step down to an oral antibiotics such as Cipro since she was sensitive. We will leave her simms catheter in place until she sees Dr. Villagomez (6) Nephrolithiasis: Status: Chronic Assessment and plan: as above (7) Nocturnal hypoxia: Status: Acute Assessment and plan: I suspect she has JESSICA/OHS and she is a mouth breather and probably should be on oxygen at night even at [facility]. (8) Type 2 diabetes mellitus: Status: Acute Assessment and plan: Bolus insulin per sliding scale per micro blood sugars before meals and at bedtime, resume diabetic diet (9) DVT prophylaxis: Status: Acute Assessment and plan: Enoxaparin 40 mg subcutaneously daily (10) Discharge planning issues: Status: Acute Assessment and plan: Return to [facility] once she is medically stable and completed iv antibiotics. I anticipate discharge latter part of this week, i.e. or Friday. Subjective Subjective Interval history since last seen: Raysa valderramauresed well overnight. Yesterday she was net -1300 mL since midnight she has been net -1400 mL. Still has some significant rales and still requiring increased oxygen requirements with 8 L of oxygen mask however her O2 saturations in the mid 90s now. She denies dyspnea or chest discomfort. Troponins peaked at 122 ng/L last night and are now down to 78 ng/L. Repeat ECG this morning demonstrates sinus rhythm rate of 78 bpm she had some nonspecific anterior T wave changes. Echocardiogram is pending at this time. Exam Narrative Exam Narrative: Pleasant female with typical Down's facies who is alert oriented person cooperative and in no distress. Neck is obese difficult to discern JVD Lungs with bilateral basilar rales to the lower one third upper lung liang are clear Heart is regular I cannot appreciate any murmur Abdomen is obese soft and nontender Lower extremities no peripheral edema or hand edema has improved Chest wall her left subclavian CVP line appears to have erythema around skin at the entry of the CVP line. I have asked nursing to remove the CVP line and will ask anesthesia to place a midline for continued antibiotics Objective Last Vital Signs Temp 36.9 C 03/12/22 07:30 Pulse 78 03/12/22 07:30 Resp 19 03/12/22 07:30 BP 110/48 L 03/12/22 07:30 Pulse Ox 84 L 03/12/22 07:30 Laboratory Results - last 24 hr 03/11/22 03/11/22 03/11/22 13:12 13:45 14:47 WBC RBC Hgb Hct MCV MCH MCHC RDW Plt Count MPV Immature Gran % Neutrophils % Lymphocytes % Monocytes % Eosinophils % Basophils % Nucleated RBC % Absolute Neutrophils Absolute Lymphocytes Absolute Monocytes Absolute Eosinophils Absolute Basophils D-Dimer 1899 H ABG Sample Site Right Radial ABG pH 7.42 ABG pCO2 40 ABG pO2 59 L ABG HCO3 26 ABG Total CO2 23 ABG O2 Saturation 92 L ABG Base Excess 1 Oxygen Liter Flow 6 Sodium Potassium Chloride Carbon Dioxide Anion Gap BUN Creatinine Est GFR (CKD-EPI 2020) Glucose Calcium Troponin I 112 H* NT-Pro-B Natriuret Pep 2645 H 03/11/22 03/12/22 03/12/22 18:04 07:42 07:42 WBC 10.00 RBC 3.21 L Hgb 10.9 L Hct 33.2 L MCV 103 H MCH 34.0 H MCHC 32.8 RDW 14.6 Plt Count 208 MPV 10.4 Immature Gran % 0.4 Neutrophils % 81.5 Lymphocytes % 12.9 Monocytes % 3.3 Eosinophils % 1.2 Basophils % 0.7 Nucleated RBC % 0.0 Absolute Neutrophils 8.15 H Absolute Lymphocytes 1.29 Absolute Monocytes 0.33 Absolute Eosinophils 0.12 Absolute Basophils 0.07 D-Dimer ABG Sample Site ABG pH ABG pCO2 ABG pO2 ABG HCO3 ABG Total CO2 ABG O2 Saturation ABG Base Excess Oxygen Liter Flow Sodium 134 L Potassium 3.7 Chloride 97 L Carbon Dioxide 34.3 H Anion Gap 2.7 L BUN 12 Creatinine 1.0 Est GFR (CKD-EPI 2020) 63.70 Glucose 162 H Calcium 8.5 Troponin I 122 H* 78 H* NT-Pro-B Natriuret Pep 3608 H Time Spent with Patient Time Spent with Patient: 35-49 minutes Time was spent: preparing to see the patient(eg.review tests), ordering medications,tests, procedures, referring, communicating with other health residential caregiver, indepentently interpreting results and care coordination
[2022-03-12] MEDS: Memantine 5 MG TAB 10 MG PO ×2 (08:40→21:14)
[2022-03-12] MEDS: Aspirin E.C. 81 MG TABEC PO (08:40)
--- NOTE | 2022-03-12 08:40 | CMPROGNOTE_ITS ---
- If Service Date Differs Date of service: 03/12/22 Time of Service: 08:40 Care Management Progress Note S/O:Raysa remains is in the ICU and was transitioned back to ICU status. She became volume overloaded yesterday following a bolus for hypotension/sepsis. She developed CHF and pulmonary edema with increased oxygen needs. Raysa required an OxyMask with 8L of O2 but is back to requiring only 3L. She was sitting up in a chair when CM met with her. She stated that she feels good and seemed happy to be out of bed. She confirmed this when asked. Her blood pressures are stable with SBP generally in the 110-120 range. Her oxygen saturatioin levels have been in the 90's most of the morning even as her oxygen is being weaned down to 3L. The plan remains for her to return to [facility] when medically cleared by provider. A: Raysa is a 61 year old woman admitted on 03/08/22 with septic shock and Uti P:Anticipate Raysa will return to [facility] once medically cleared. She will transport via EMS vs [facility] W/C van, depending on presentation. She will follow up with facility providers and discharge plan of care. CM will continue to follow and support discharge needs.
--- NOTE | 2022-03-12 08:45 | DI.US_ITS ---
APPROVED REPORT EXAM: Comprehensive 2D, Doppler, and color-flow Echocardiogram Patient Location: In-Patient Room/Bed: [id number] Manager Construction: Bonita Thrasher RDCS (AE) Indications: CHF, Evaluate LV and RV Other Information Study Quality: Fair. Technically limited study due to body habitus, inability to position patient exa m done supine bedside icu. Conclusion Technically limited study. The left ventricle appears grossly normal in size and wall thickness. Es timated ejection fraction is 50 to 55%. No segmental wall motion abnormalities were noted Right ventricle was not well visualized Both atria are normal in size No structural or hemodynamically significant valvular disease was identified Wall motion Left Ventricle The left ventricle is normal size. Left ventricular systolic function is Borderline There is normal left ventricular wall thickness. No segmental wall motion abnormalities were identified LVEF is 50-55 %. Right Ventricle Right ventricle is not well visualized. Right ventricular systolic function could not be assessed. Atria The left atrium size is normal. The right atrium size is normal. Aortic Valve The aortic valve is normal in structure. Aortic valve is probably trileaflet. There is no aortic valv ular stenosis. Mitral Valve The mitral valve is normal in structure. No evidence of mitral valve stenosis. Trace mitral regurgita tion. Tricuspid Valve The tricuspid valve is normal in structure. There is no tricuspid valve stenosis. Trace tricuspid reg urgitation. Pulmonic Valve Pulmonic valve is not well visualized. There is no pulmonic valvular stenosis. There is no pulmonic v alvular regurgitation. Great Vessels The aortic root is normal in size. The ascending aorta is normal in size. The IVC was not visualized. Pericardium Technically limited subcostal imaging. 2D Dimensions IVSD d PLAX 0.73 cm F: 0.6-1.0 LV Vol A2C d MOD 115.4 mL LVPW d PLAX 0.73 cm F: 0.6 - 1.0 LV Vol A4C d MOD 82.1 mL LVID d PLAX 3.88 cm F: 3.8 - 5.2 LV EF A4C MOD 48.7 % LVDs 3.05 cm F: 2.2 - 3.5 LV EF A2C MOD 49.4 % Ao Root d 2.83 cm F: 2.7 - 3.3 LV EF Biplane MOD 48.6 % Ao Asc Diam d 2.55 cm F: 2.3 - 3.1 SV 49.46 mL LV EF Teichholz 43.8 % SV Index 26.16 mL/m2 LVEF (Garvey's) 48.57 % F: 54 - 74 LV Volume 77.84 mL F: 46 - 106 LV Volume Index 41.18 mL/m2 F: 29 - 61 LV Vol Biplane MOD 101.8 mL FS 21.20 % LV Diastology MV E' medial 0.073 (>0.07 m/s) E/A Ratio 1.0 LV E/e MED 13.85 (<14) MV E Vmax 1.02 (0.4-1.3 m/s) MV E' lateral 0.089 (>0.1 m/s) MV A Vmax 1.05 (0.4-1.3 m/s) LV E/e LAT 11.40 (<14) MV E/A Ratio 0.93 MV E/E' medial 13.87 MV E/E' lateral 11.43 Aortic Valve LVOT Area 3.32 cm2 AoV Area Vmax 2.16 cm2 LVOT Vmax 0.83 m/s AoV Area/ BSA (Vmax) 1.14 cm2/m2 LVOT Mean Matthew. 0.54 m/s KEVON Mean Matthew. 1.93 cm2 LVOT Peak Grad 2.8 mmHg KEVON Mean Matthew. Index 1.02 cm2/m2 LVOT Mean Grad 1.4 mmHg LVOT VTI 0.155 m LVOT Diam s 2.05 cm AoV Vmax 1.28 m/s Velocity Ratio 0.65 AoV Mean Matthew. 0.93 m/s AoV Peak Grad 6.6 mmHg LVOT SV 51.35 mL AoV Mean Grad 3.8 mmHg AoV VTI 0.262 m AoV Area VTI 1.96 cm2 AoV Area/ BSA (VTI) 1.04 cm/m2 Mitral Valve MV DT 221 (160-240 msec) MV PHT 64 msec MV Area PHT 3.43 cm2 MV VTI 0.363 m MV Area VTI 1.41 (4.0-6.0 cm2) Pulmonary Valve PV Vmax 0.75 (0.5-1.5 m/s) RVOT Peak Gr. 2.70 mmHg PV Peak Grad 2.2 mmHg RVOT Mean Gr. 1.35 mmHg PV Mean Grad 1.3 mmHg RVOT VTI 0.158 m PV VTI 0.150 m RVOT Vmax 0.82 m/s Tricuspid Valve TR Peak Grad 29.9 mmHg TR Vmax 2.74 m/s
--- NOTE | 2022-03-12 09:35 | PUCC_ITS ---
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 She has been diuresed effectively and her oxygen requirements are significantly improving. She does still have a central line from her admission that should really be discontinued. Overall she seems to be doing well, and if she continued to improve oxygenation velarde, she can safely be downgraded to med- surg. Recommendations Pulmonary: Hypoxic respiratory failure - supplemental O2 for sats >90% - diuresis as below - out of bed to chair - recommend PT consult - incentive spirometry Cardiac: Volume overload - diuresed well so far, - Lasix 40mg q8 to 40mg daily as she is 4L negative in the last 24 hours - echo ordered - repeat electrolytes at 2pm to assess whether K repletion is needed Elevated troponin - in the setting of volume overload - echo ordered Renal: Electrolyte screening as above I&O: Intake & Output 03/09/22 03/10/22 03/11/22 03/12/22 23:59 23:59 23:59 23:59 Intake Total 2046.426 / 2046.426 1890 / 1890 1320 / 1320 480 / 480 Output Total 1275 / 1275 1815 / 1815 2675 / 2675 1900 / 1900 Balance 771.426 / 771.426 75 / 75 -1355 / -1355 -1420 / -1420 Weight 102.1 kg Daily Fluid Goal:: -1L in next 24 hours GI Nutrition: Ok for diet Date of Last Bowel Movement: 03/11/22 Infectious Disease: UTI - on ceftriaxone Hematologic: No acute concern Neurologic: No acute concerns Endocrine: Hypothyroidism - on home levothyroxine Lines: Left subclavian line Glez Prophylaxis: Lovenox Code Status: Resuscitation Status Full Code Subjective Critical and life-threatening events over the past 24 hours: This is a 61 yo with Down's syndrome who had urosepsis after instrumentation for stent placement for stones. She was admitted to the ICU where she was fluid resuscitated and required Levophed briefly. She did well and transferred to the floor. Yesterday she developed increase dyspnea with increasing O2 requirements. She had a CTPE performed which found no PE but was very significant for an overall volume overload state. She was admitted back to the ICU for hypoxic respiratory failure and was started on a diuresis regimen. She has been aggressively diuresed and seems to be improving. Today she is comfortable and denies pain or dyspnea. She is on a mask (patient is a mouth breather) and doing well. Exam Narrative Exam Narrative: Gen: NAD, normal respiratory effort, well-nourished HENT: PERRL, nasal turbinates normal without erythema or inflammation, moist oral mucosa, Mallampati 2, No LAD or JVD Chest: No respiratory distress, normal appearance of chest, clear to auscultation bilaterally, bilateral, relatively diffuse crackles Heart: regular rate and rhythym, no murmurs, rubs or gallops Abdomen: Non-distended, soft, non tender Extremities: No clubbing, edema, cyanosis. Redness around central line insertion site Neuro: AAOx3 , non focal Psych: cooperative, appropriate mental affect Most Recent VS/Results Last Vital Signs Temp 37.1 C 03/12/22 08:46 Pulse 74 03/12/22 08:46 Resp 19 03/12/22 08:46 BP 121/57 L 03/12/22 08:46 Pulse Ox 90 L 03/12/22 09:14 Laboratory Results - last 24 hr 03/11/22 03/11/22 03/11/22 13:12 13:45 14:47 WBC RBC Hgb Hct MCV MCH MCHC RDW Plt Count MPV Immature Gran % Neutrophils % Lymphocytes % Monocytes % Eosinophils % Basophils % Nucleated RBC % Absolute Neutrophils Absolute Lymphocytes Absolute Monocytes Absolute Eosinophils Absolute Basophils D-Dimer 1899 H ABG Sample Site Right Radial ABG pH 7.42 ABG pCO2 40 ABG pO2 59 L ABG HCO3 26 ABG Total CO2 23 ABG O2 Saturation 92 L ABG Base Excess 1 Oxygen Liter Flow 6 Sodium Potassium Chloride Carbon Dioxide Anion Gap BUN Creatinine Est GFR (CKD-EPI 2020) Glucose Calcium Troponin I 112 H* NT-Pro-B Natriuret Pep 2645 H 03/11/22 03/12/22 03/12/22 18:04 07:42 07:42 WBC 10.00 RBC 3.21 L Hgb 10.9 L Hct 33.2 L MCV 103 H MCH 34.0 H MCHC 32.8 RDW 14.6 Plt Count 208 MPV 10.4 Immature Gran % 0.4 Neutrophils % 81.5 Lymphocytes % 12.9 Monocytes % 3.3 Eosinophils % 1.2 Basophils % 0.7 Nucleated RBC % 0.0 Absolute Neutrophils 8.15 H Absolute Lymphocytes 1.29 Absolute Monocytes 0.33 Absolute Eosinophils 0.12 Absolute Basophils 0.07 D-Dimer ABG Sample Site ABG pH ABG pCO2 ABG pO2 ABG HCO3 ABG Total CO2 ABG O2 Saturation ABG Base Excess Oxygen Liter Flow Sodium 134 L Potassium 3.7 Chloride 97 L Carbon Dioxide 34.3 H Anion Gap 2.7 L BUN 12 Creatinine 1.0 Est GFR (CKD-EPI 2020) 63.70 Glucose 162 H Calcium 8.5 Troponin I 122 H* 78 H* NT-Pro-B Natriuret Pep 3608 H Review of Systems All systems reviewed & are unremarkable except as noted in HPI and below Time spent with patient Time spent in Critical Care: 40 Time spent in Critical care included: Coordination of care, Chart review, Documenting critically ill care, Time at immediate bedside and Discussing critically ill care with other medical staff Multi-Disciplinary Checklist Lines/Tubes CENTRAL LINE: yes, Central Line Day#: 5 Note: recommend removal today ARTERIAL LINE: no GLEZ: yes, Glez Day#: 5 ENDOTRACHEAL TUBE: no ICU Maintenance GLUCOSE 140-180mg/dL: yes NUTRITION AT GOAL: yes PRESSURE ULCER: no RESTRAINTS: no ANTIBIOTICS(if yes, consider Stewardship): Yes Social Issues FAMILY UPDATED: no, Reason/Intervention: defer to hospitalist team PT/OT: no, Reason/Intervention: recommend consult GOALS/DISPOSITION/SHUTTLE PREPARATION SUPERVISOR: yes CODE STATUS: Full Prophylaxis DVT PROPHYLAXIS: yes GI PROPHYLAXIS: no
[2022-03-12] MEDS: Lactobacillus Acidophilus CAP 1 CAP PO ×2 (10:28→21:14)
[2022-03-12] MEDS: Enoxaparin 40 MG/0.4 ML SYR SC (11:57)
[2022-03-12] MEDS: cefTRIAXone 2 GM/50 ML BAG IVPB (12:49)
[2022-03-12] MEDS: Potassium Chloride Liquid 20 MEQ PKT PO ×2 (14:00→21:14)
[2022-03-12 14:36] LABS: Anion Gap 3.7 mmol/L (3-11); CO2 35.3 mmol/L (21.0-32.0); Chloride 95 mmol/L (98-107); Potassium 3.9 mmol/L (3.5-5.1); Sodium 134 mmol/L (136-145)
[2022-03-12] MEDS: Sertraline 50 MG TAB PO (21:14)
[2022-03-12] MEDS: QUEtiapine 25 MG TAB PO (21:14)
[2022-03-12] MEDS: Donepezil 5 MG TAB PO (21:14)
[2022-03-13] VITALS (26 sets, daily range): BP systolic 90–140; BP diastolic 46–70; PULSE 69–96; RESP 14–34; TEMP 36.3–37; O2SAT 85–95
[2022-03-13] MEDS: Levothyroxine 88 MCG TAB PO (05:40)
[2022-03-13] MEDS: Levothyroxine 100 MCG TAB PO (05:40)
[2022-03-13 05:56] LABS: Abs Immature Grans 0.05 10^3/uL (0.0-0.06); Absolute Basophil Count 0.06 10^3/uL (0.0-0.2); Absolute Monocyte Count 0.34 10^3/uL (0.1-0.8); Absolute Neutrophil Count 6.91 10^3/uL (1.2-6.7); Basophils % 0.7; Eosinophils % 2.3; HCT 34.1 % (36.0-46.0); HGB 11.6 g/dL (11.2-15.7); Immature Grans % 0.6; Lymphocytes % 14.7; MCV 103 fL (80-95); MPV 10.8 fL (8.0-11.0); Monocytes % 3.8; Neutrophils % 77.9; Platelet Count 232 10^3/uL (130-400); RBC 3.31 10^6/uL (3.93-5.22); RDW 14.4 % (11.7-14.6); RDW-SD 54.4 fL; WBC 8.86 10^3/uL (4.4-10.8)
[2022-03-13 06:11] LABS: ALT 23 U/L (14-59); AST 20 U/L (15-37); Alkaline Phosphatase 186 U/L (46-116); Anion Gap 1.5 mmol/L (3-11); BUN 16 mg/dL (7-18); Bilirubin, Total 0.4 mg/dL (0.2-1.0); C-Reactive Protein 18.89 mg/dL (0.0-0.3); CO2 33.5 mmol/L (21.0-32.0); CREATININE 0.9 mg/dL (0.55-1.02); Calcium 8.7 mg/dL (8.5-10.1); Chloride 98 mmol/L (98-107); Estimated GFR 72.28 (mL/min/1.73m2); Glucose 165 mg/dL (74-106); Magnesium 1.7 mg/dL (1.8-2.4); Potassium 4.1 mmol/L (3.5-5.1); Sodium 133 mmol/L (136-145); Total Protein 7.3 g/dL (6.4-8.2)
[2022-03-13 06:56] LABS: Procalcitonin 1.1 ng/mL
--- NOTE | 2022-03-13 08:22 | W.PM.PROGNOT ---
Date of Service Date of service: 03/13/22 Time of Service: 08:22 Assessment and Plan Assessment and plan (1) Volume overload: Status: Acute Assessment and plan: secondary to aggressive fluid resuscitation from when she was in septic shock. She has been diuresing but still is not euvolemic (wt 95 kg, baseline was 93 kg on admission), still has rales and still desaturates w/ movement. Some of her nocturnal desaturation is the fact she is mouth breather and probably has JESSICA/OHS. I will increase her lasix to 40 mg IVP bid (was decreased to daily yesterday). Her echocardiogram was technically difficult but did not show any grossly abnormal wall motion abnormalities and overall LV function was normal w/ LVEF 50 to 55%. RV was not well visualized. Patient is hemodynamically stable and from a respiratory standpoint is stable enough to be transferred to the medical/surgical floor. Still requires a lot of nursing care because of her Down syndrome which limits her ability. Case discussed with Dr. Stephanie Kelley. Case discussed with patient's primary nurse Nicole. Professional time spent interviewing and examining patient, discussion of goals of care with hospital team (care management, nursing and consulting professionals) was 45 minutes. (2) Elevated troponin I level: Status: Acute Assessment and plan: type II demand ischemia secondary to sepsis and volume overload. No RWMA seen on echo and overall LV systolic function was normal. (3) Mobitz type I Wenckebach atrioventricular block: Status: Acute Assessment and plan: No more witnessed AV block; this was associated w/ eating this past weekend prior to her hypoxia and was assumed to be d/t vagal response. Her NE on today's EKG is normal at 1645 msec. She has no AV conduction abnormalites on her EKG. QRS duration is 94 msec and her QTC is 481 msec (4) Obstructive uropathy: Status: Acute Assessment and plan: s/p cystoureteroscopy and stenting of left distal ureter performed at [facility] by Dr. Villagomez. Will maintain simms until she is seen by urology. (5) UTI (urinary tract infection): Status: Acute Assessment and plan: Patient presented in sepsis and was on vasopressors on admission but has been off vasopressors since 03/09. She was initially treated with Zosyn and vancomycin however her urine cultures grew E. coli which was sensitive to ceftriaxone. She is currently on ceftriaxone 2 g IV daily. We will plan for at least 7 days and as long as 10 days for her parenteral antibiotics. If her procalcitonin normalizes we could step down to an oral antibiotics such as Cipro since she was sensitive. We will leave her simms catheter in place until she sees Dr. Villagomez (6) Nephrolithiasis: Status: Chronic Assessment and plan: as above (7) Nocturnal hypoxia: Status: Acute Assessment and plan: I suspect she has JESSICA/OHS and she is a mouth breather and probably should be on oxygen at night even at [facility]. (8) Type 2 diabetes mellitus: Status: Acute Assessment and plan: Bolus insulin per sliding scale per micro blood sugars before meals and at bedtime, resume diabetic diet (9) DVT prophylaxis: Status: Acute Assessment and plan: Enoxaparin 40 mg subcutaneously daily (10) Discharge planning issues: Status: Acute Assessment and plan: Return to [facility] once she is medically stable and completed iv antibiotics. I anticipate discharge latter part of this week, i.e. or Friday. Subjective Subjective Interval history since last seen: Patient is improving in her oxygenation. She was weaned to 2 LPM NC; however, she is a mouth breather and when asleep she tends to desaturate into the mid 80's%. She has no acute complaints and does not appear to be dyspneic. 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 Neck is obese, difficult to discern JVD Lungs: bilateral basilar rales to lower 1/3; not rhonchorous Heart: Regular Abdomen: soft, nontender Legs: no edema or cyanosis Objective Last Vital Signs Temp 36.5 C 03/13/22 03:15 Pulse 85 03/13/22 03:15 Resp 20 03/13/22 04:00 BP 119/65 03/13/22 03:15 Pulse Ox 89 L 03/13/22 08:17 Laboratory Results - last 24 hr 03/12/22 03/13/22 03/13/22 14:02 05:34 05:34 WBC RBC Hgb Hct MCV MCH MCHC RDW Plt Count MPV Immature Gran % Neutrophils % Lymphocytes % Monocytes % Eosinophils % Basophils % Nucleated RBC % Absolute Neutrophils Absolute Lymphocytes Absolute Monocytes Absolute Eosinophils Absolute Basophils Sodium 134 L 133 L Potassium 3.9 4.1 Chloride 95 L 98 Carbon Dioxide 35.3 H 33.5 H Anion Gap 3.7 1.5 L BUN 16 Creatinine 0.9 Est GFR (CKD-EPI 2020) 72.28 Glucose 165 H Calcium 8.7 Magnesium 1.7 L Total Bilirubin 0.4 AST 20 ALT 23 Alkaline Phosphatase 186 H C-Reactive Protein 18.89 H Total Protein 7.3 Albumin 2.0 L Procalcitonin 1.1 03/13/22 05:34 WBC 8.86 RBC 3.31 L Hgb 11.6 Hct 34.1 L MCV 103 H MCH 35.0 H MCHC 34.0 RDW 14.4 Plt Count 232 MPV 10.8 Immature Gran % 0.6 Neutrophils % 77.9 Lymphocytes % 14.7 Monocytes % 3.8 Eosinophils % 2.3 Basophils % 0.7 Nucleated RBC % 0.0 Absolute Neutrophils 6.91 H Absolute Lymphocytes 1.30 Absolute Monocytes 0.34 Absolute Eosinophils 0.20 Absolute Basophils 0.06 Sodium Potassium Chloride Carbon Dioxide Anion Gap BUN Creatinine Est GFR (CKD-EPI 2020) Glucose Calcium Magnesium Total Bilirubin AST ALT Alkaline Phosphatase C-Reactive Protein Total Protein Albumin Procalcitonin Time Spent with Patient Time Spent with Patient: 35-49 minutes Time was spent: preparing to see the patient(eg.review tests), ordering medications,tests, procedures, referring, communicating with other health lawn care specialist, indepentently interpreting results and care coordination
[2022-03-13] MEDS: Potassium Chloride Liquid 20 MEQ PKT PO (08:42)
[2022-03-13] MEDS: Memantine 5 MG TAB 10 MG PO ×2 (08:42→20:59)
[2022-03-13] MEDS: Lactobacillus Acidophilus CAP 1 CAP PO ×2 (08:42→20:59)
[2022-03-13] MEDS: Furosemide 40 MG/4 ML VIAL IVP ×2 (08:42→20:58)
[2022-03-13] MEDS: Aspirin E.C. 81 MG TABEC PO (08:42)
[2022-03-13] MEDS: Insulin Aspart 300 UNITS/3 ML PEN SC ×4 (08:43→22:14)
--- NOTE | 2022-03-13 09:59 | PDOC.CMPRO ---
- If Service Date Differs Date of service: 03/13/22 Time of Service: 10:00 Care Management Progress Note S/O:Raysa was sitting up in a chair eating lunch when CM met with her. She was smiling and said she was feeling good. Raysa ate almost all of her lunch and, when asked, stated that she enjoyed it. Her oxygen needs have decreased and she is down to 2L via mask (she is a mouth breather). Raysa's blood pressure and heart rate have been WNL and she has been downgraded to Med-Surg status. A: Raysa is a 61 year old woman admitted on 03/08/22 with septic shock and Uti P:Anticipate Raysa will return to [facility] once medically cleared. She will transport via EMS vs [facility] W/C van, depending on presentation. She will follow up with facility providers and discharge plan of care. CM will continue to follow and support discharge needs.
[2022-03-13] MEDS: cefTRIAXone 2 GM/50 ML BAG IVPB (12:29)
[2022-03-13] MEDS: Enoxaparin 40 MG/0.4 ML SYR SC (12:29)
--- NOTE | 2022-03-13 14:27 | PT.INIE ---
Date of service: 03/13/22 Time of Service: 14:27 PT Notes Visit Reasons: Septic Shock Complicated UTI, Obstructive Uropathy Physical Therapy Inpatient Initial Evaluation Date: 03/13/2022 Referring Doctor: Cody Gupta MD PT Orders: PT CONSULT: Extended stay weakness Precautions: Fall. Standard. Activity as tolerated. Patient Profile/Admitting Diagnosis: Raysa is a 61-year-old female with medical history significant for trisomy 21 who was admitted to ICU level of care for management of volume overload, elevated troponin, Mobitz T1 Wenckebach AV block, obstructive uropathy status post cystoscopy ureteroscopy, status post left distal ureteral stenting, urinary tract infection, nephrolithiasis, nocturnal hypoxia, and type II DM. PMHX: All Active Problems?(Updated 03/08/22 @ 17:09 by Edith Clay MD) Dehydration (Acute) Discharge planning issues (Acute) DVT prophylaxis (Acute) Nephrolithiasis (Chronic) Obstructive uropathy (Acute) UTI (urinary tract infection) (Acute) Septic shock (Acute) Urinary incontinence (Acute) Type 2 diabetes mellitus (Acute) Psoriasis (Chronic) Pain in right knee (Acute) Impairment of balance (Acute) Hypothyroidism (Chronic) Hyperlipidemia (Acute) Hyperglycemia (Acute) Hypercarbia (Acute) Falls (Acute) Dementia with behavioral disturbance (Acute) Complete trisomy 21 syndrome (Acute) Blepharitis (Acute) Surgical History?(Updated 03/08/22 @ 15:46 by Edith Clay MD) H/O abdominal surgery Social History/Home Situation: Long-term care resident at [facility]. Equipment Owned/DME: Mechanical lift, hopsital bed, wheelchair Subjective: Have you been here before? Agreeable to moving upper extremities actively but could not be engaged to move lower extremities. Per Nurse Rivera, patient requires maximal assistance with feeding. Objective: General Observation: Seated on chair. Guzman catheter in place. Oxygen supplementation via NC. Telemetry monitoring. B LE muscles atrophic. Mental Status: Alert. Requires maximal assist for engagement. Delayed cognitive processing. Responses tangential. Pain: No verbal and non-verbal expression of pain received throughout session Vital Signs: Closely monitored by ICU nursing staff ROM: Right Upper Extremity: Lacks about the last 25% AROM in shoudlers and elbows. R hand and finger contracture seen. Left Upper Extremity: Lacks about the last 25% AROM Right Lower Extremity: Unable to test Left Lower Extremity: Unable to test Strength: Right Upper Extremity: Grossly 3-/5. finher and hand extension absent. Left Upper Extremity: Grossly 3-/5 Right Lower Extremity: Unable to test Left Lower Extremity: Unable to test Bed Mobility/Transfers: Requires total dependence with all bed mobility and transfers Gait: Unable Balance: Static Sitting: Fair Dynamic Sitting: Poor Static Standing: Unable Dynamic Standing: Unable Special Tests: Mobility Limitations Standardized Measure [facility] AM-PAC 6 clicks Basic Mobility Inpatient Short Form: Raw Score: 6 CMS Score: 100% deficit Informed Consent/Education: Patient was instructed in purpose of PT consult and plan of care. Agreeable to proceed with established PT POC to achieve personal goals. Assessment: Requires maximal cueing with simple tasks as moving an extremity. Unable to completely follow single step commands without repetition. Attention span severely impaired. Continue with use of mechanical lift for all transfers for safety. Unsure of prior level of function at the SNF. Patient presents with clinical signs and symptoms consistent with current/admitting diagnoses that have resulted to mobility limitations, gait instability, generalized weakness, and overall ADL decline as demonstrated by the following impairment level findings: 1. Decreased strength to B UE/LE major muscle groups 2. Impaired sitting balance 3. Impaired activity tolerance 4. Limitation of joint range of motion in B shoulders 5. Impaired attention span Impairments are contributing to the following functional limitations: 1. Total dependence bed mobility 2. Total dependence in transfers Patient is assessed as a 57403 high complexity based on the following: History: 61-year-old female with past medical history as indicated above Examination: Demonstrable impairment in strength, balance, and mobility level with underlying impairments and functional limitations as exhibited above as well as deficit score of 100% utilizing the [facility] Mobility Inpatient Short Form Presentation: Evolving Decision Makin high complexity Goals: N/A. PT evaluation only. Plan of Care/Treatment Plan: N/A. PT evaluation only. DISCHARGE RECOMMENDATIONS: [] Home with no services [] [] Home with services [specify] [] Home with outpatient PT [] [] SNF for continued rehabilitation [] [] [facility] [] [] SNF versus LTC based on ability to participate and progress [] [X] Return to SNF when medically cleared requiring total assistance with bed mobility and transfers TREATMENT CODE/TIME: 62105 x 28 minutes beginning at 14:27 PM. Thank you for the opportunity to participate in the care of this patient. Bibiana Lieberman PT, DPT, CLT [facility] [place], [place]
--- NOTE | 2022-03-13 16:38 | CHAPLAIN ---
Raysa was in the chair when I visited. She was coloring at the time. She responded with short answers to some of my questions. I'm not sure I explained well enough what my role is for her to understand, but she was pleasant and engaged in a short conversation with me. She said her mom will be in later to visit. Raysa lives at [facility] and will return there when she is medically cleared. She's here for treatment for a UTI.
[2022-03-13] MEDS: Donepezil 5 MG TAB PO (21:58)
[2022-03-13] MEDS: QUEtiapine 25 MG TAB PO (21:59)
[2022-03-13] MEDS: Sertraline 50 MG TAB PO (21:59)
[2022-03-14] MEDS: Levothyroxine 100 MCG TAB PO (06:00)
[2022-03-14] MEDS: Levothyroxine 88 MCG TAB PO (06:00)
[2022-03-14 06:07] VITALS: BP 108/51; PULSE 76
[2022-03-14 06:15] VITALS: BP 105/51; PULSE 95; TEMP 36.1; O2SAT 95
--- NOTE | 2022-03-14 08:23 | PDOC.CMPRO ---
- If Service Date Differs Date of service: 03/14/22 Time of Service: 08:23 Care Management Progress Note S/O:Raysa was sitting up in a chair with a page from a coloring book and crayons in front of her. She had a picture of 2 kittens to color. CM asked if she liked cats and Judy stated that she did and has some of her own. Her nurse explained that one of Raysa's 3 brothers has a farm and that is where her cats are kept. She was much more alert and interactive today. She smiled frequently and talked more with CM than previously. Clinically she continues to improve. If the present course continues, it is anticipated that she will discharge back to [facility] tomorrow. A: Raysa is a 61 year old woman admitted on 03/08/22 with septic shock and Uti P:Anticipate Raysa will return to [facility] once medically cleared. She will transport via EMS vs [facility] W[facility] van, depending on presentation. She will follow up with facility providers and discharge plan of care. CM will continue to follow and support discharge needs.
[2022-03-14 08:40] VITALS: BP 111/61; PULSE 67; O2SAT 90
--- NOTE | 2022-03-14 09:07 | W.PM.PROGNOT ---
Date of Service Date of service: 03/14/22 Time of Service: 09:07 Assessment and Plan Assessment and plan (1) Volume overload: Status: Acute Assessment and plan: fluid overload secondary to aggressive iv fluid resuscitation related to her initial admission for septic shock. Now she has diuresed well. Wt down to 90 kg which is actually below her admission wt of 93.5 kg. I/O now cumulative -6.5 liters and over past 24 hr she has been -2700. I will stop her diuretics at this point. She has grossly normal LV function per echo and therefore should not need chronic diuretics. Professional time spent interviewing and examining patient, discussion of goals of care with hospital team (care management, nursing and consulting professionals) was 35 minutes. (2) Decubitus skin ulcer: Status: Acute Assessment and plan: patient did not have decubitus skin ulcer on admission and this was not seen by me couple days ago when I assisted nursing in cleaning her up. We will ask wound care nurse to consult on her skin condition and make recommendations for treatment and prevention of further breakdown. (3) Elevated troponin I level: Status: Acute Assessment and plan: type II demand ischemia secondary to sepsis and volume overload. No RWMA seen on echo and overall LV systolic function was normal. (4) Mobitz type I Wenckebach atrioventricular block: Status: Acute Assessment and plan: No more witnessed AV block; this was associated w/ eating this past weekend prior to her hypoxia and was assumed to be d/t vagal response. Her OR on today's EKG is normal at 1645 msec. She has no AV conduction abnormalites on her EKG. QRS duration is 94 msec and her QTC is 481 msec (5) Obstructive uropathy: Status: Acute Assessment and plan: s/p cystoureteroscopy and stenting of left distal ureter performed at [facility] by Dr. Villagomez. Will maintain simms until she is seen by urology. (6) UTI (urinary tract infection): Status: Acute Assessment and plan: Patient presented in sepsis and was on vasopressors on admission but has been off vasopressors since 03/09. She was initially treated with Zosyn and vancomycin however her urine cultures grew E. coli which was sensitive to ceftriaxone. She is currently on ceftriaxone 2 g IV daily. We will plan for at least 7 days and as long as 10 days for her parenteral antibiotics. If her procalcitonin normalizes we could step down to an oral antibiotics such as Cipro since she was sensitive. We will leave her simms catheter in place until she sees Dr. Villagomez Her WBC has normalized at 8800 however her procalcitonin remains slightly elevated at 1.1 and her CRP remains elevated at 18.8. Upon discharge, I will leave her on Cipro. I will check her stool for C. diff as she has been having loose BM although not watery. (7) Nephrolithiasis: Status: Chronic Assessment and plan: as above (8) Nocturnal hypoxia: Status: Acute Assessment and plan: I suspect she has JESSICA/OHS and she is a mouth breather and probably should be on oxygen at night even at [facility]. (9) Type 2 diabetes mellitus: Status: Acute Assessment and plan: Bolus insulin per sliding scale per micro blood sugars before meals and at bedtime, resume diabetic diet. Glucose has been running in the 180 to 190 range. I will add low basal insulin, 5 units Lantus at bedtime. (10) DVT prophylaxis: Status: Acute Assessment and plan: Enoxaparin 40 mg subcutaneously daily (11) Discharge planning issues: Status: Acute Assessment and plan: Return to [facility] once she is medically stable and completed iv antibiotics. I anticipate discharge end of the week, i.e. Friday. Subjective Subjective Interval history since last seen: Patient states she feels fine. No complaints. She is sitting up in her chair eating her breakfast. Nursing reports that she is starting to develope blisters borderline stage II skin ulcers over her buttocks and sacrum. I have asked wound care nurse to consult on the patient. Exam Narrative Exam Narrative: Patient is sitting up in her chair ready to eat her breakfast. She is very alert, oriented to person. She is interactive w/ her nurse, naming the foods she is about to eat Lungs: clear anteriorly and posteriorly Heart: RRR Abdomen: soft, nontender Legs: no edema Simms: clear yellow w/ some sediment Objective Last Vital Signs Temp 36.1 C L 03/14/22 06:15 Pulse 95 H 03/14/22 06:15 Resp 19 03/13/22 10:01 BP 105/51 L 03/14/22 06:15 Pulse Ox 95 03/14/22 06:15 Time Spent with Patient Time Spent with Patient: 25-34 minutes Time was spent: preparing to see the patient(eg.review tests), ordering medications,tests, procedures, referring, communicating with other health home health care respiratory therapist, indepentently interpreting results and care coordination
[2022-03-14] MEDS: Insulin Aspart 300 UNITS/3 ML PEN SC ×4 (09:12→21:16)
[2022-03-14] MEDS: Furosemide 40 MG/4 ML VIAL IVP (09:13)
[2022-03-14] MEDS: Memantine 5 MG TAB 10 MG PO ×2 (09:13→21:09)
[2022-03-14] MEDS: Lactobacillus Acidophilus CAP 1 CAP PO ×2 (09:13→21:08)
[2022-03-14] MEDS: Aspirin E.C. 81 MG TABEC PO (09:13)
[2022-03-14] MEDS: Magnesium Oxide 400 MG TAB PO ×2 (10:09→21:08)
--- NOTE | 2022-03-14 11:26 | WOUNDCONS_ITS ---
- If Service Date Differs Date of service: 03/14/22 Time of Service: 11:27 Wound Initial Evaluation Narrative: Pt is a 61 y.o female w/down syndrome. MD ordered wound consult to address suspected blister or possible decubitis on buttocks. Pt agreeable to nursing checking her skin. D/T mental disability Pt unable to consult to photography so no photos were taken. Chart reviewed, pertinant labs, H&P and other relevant documents reviewed. Spoke to ICU nurse who has been caring for Pt the last few days and she states Pt is frequently incontinent of feces. Currently has Guzman in place, not chronic from my understanding. Upon examination Pt has some stool in her vaginal area and buttocks. This was cleaned and subsequently exposed redness, +1 edema in groin folds, vaginal area, and extending down into buttocks what appears to be MASID. Fungal component noted, whitish colored skin [place] noted to groin and distal medial bilateral buttocks. Also of note on right buttocks in the middle of cheek Pt has what appears to be a possible popped blister or could have been a friction injury and caused epidermis to peel away, hard to tell. Area appears to be 90% epithelialized. Pt denies pain. Recommend using triple cream BID and PRN (Obed's paste made here in pharmacy) containing zinc, A&D, and Clotrimazole until area is healed or MD instructs to stop use. Prevention for stopping friction injuries while in the hospital including utilizing ergo nurse instead of boosting Pt. Also making sure to cleanse entire area of stool and PAT DRY prior to application of any cream. Proper positioning and repositioning in chair also important in reducing risk of skin injury. Thank you for the consult. - Wound Vagina/Groin Wound Type: Other Wound General Appearance: Reddened Right Buttocks Wound Type: Other, Partial Thickness Wound General Appearance: Healing Well Wound Length: 5 cm Wound Width: 2 cm Wound Depth: 0.1 cm Wound Drainage Odor: None/Absent - Recomendation Recomendation:: Recommend using triple cream BID and PRN (Obed's paste made here in pharmacy) containing zinc, A&D, and Clotrimazole until area is healed or MD instructs to stop use. Prevention for stopping friction injuries while in the hospital including utilizing ergo nurse instead of boosting Pt. Also making sure to cleanse entire area of stool and PAT DRY prior to application of any cream. Proper posit ioning and repositioning in chair also important in reducing risk of further skin injury.
[2022-03-14 12:10] VITALS: BP 96/45; PULSE 75; O2SAT 92
[2022-03-14] MEDS: Enoxaparin 40 MG/0.4 ML SYR SC (12:27)
[2022-03-14] MEDS: cefTRIAXone 2 GM/50 ML BAG IVPB (12:27)
[2022-03-14 17:05] VITALS: RESP 16; TEMP 36.3; O2SAT 93
[2022-03-14 17:06] VITALS: BP 138/57; PULSE 80
[2022-03-14] MEDS: Donepezil 5 MG TAB PO (21:08)
[2022-03-14] MEDS: QUEtiapine 25 MG TAB PO (21:08)
[2022-03-14] MEDS: Sertraline 50 MG TAB PO (21:08)
[2022-03-14] MEDS: Insulin Glargine 300 UNITS/3 ML PEN SC (21:16)
[2022-03-15 05:41] LABS: Abs Immature Grans 0.04 10^3/uL (0.0-0.06); Absolute Basophil Count 0.07 10^3/uL (0.0-0.2); Absolute Eosinophil Count 0.24 10^3/uL (0.0-0.7); Absolute Monocyte Count 0.28 10^3/uL (0.1-0.8); Absolute Neutrophil Count 4.57 10^3/uL (1.2-6.7); Eosinophils % 3.5; HCT 36.3 % (36.0-46.0); HGB 12.3 g/dL (11.2-15.7); Immature Grans % 0.6; Lymphocytes % 23.5; MCH 34.6 pg (27.0-33.0); MCHC 33.9 % (32.0-36.0); MCV 102 fL (80-95); MPV 10.3 fL (8.0-11.0); Monocytes % 4.1; Neutrophils % 67.3; Platelet Count 322 10^3/uL (130-400); RBC 3.56 10^6/uL (3.93-5.22); RDW 14.3 % (11.7-14.6); RDW-SD 53.6 fL
[2022-03-15 06:00] LABS: ALT 22 U/L (14-59); AST 23 U/L (15-37); Albumin 2.2 g/dL (3.4-5.0); Alkaline Phosphatase 157 U/L (46-116); BUN 28 mg/dL (7-18); Bilirubin, Total 0.2 mg/dL (0.2-1.0); C-Reactive Protein 8.75 mg/dL (0.0-0.3); CREATININE 0.9 mg/dL (0.55-1.02); Calcium 8.9 mg/dL (8.5-10.1); Chloride 97 mmol/L (98-107); Estimated GFR 72.28 (mL/min/1.73m2); Glucose 188 mg/dL (74-106); Potassium 4.1 mmol/L (3.5-5.1); Sodium 133 mmol/L (136-145); Total Protein 7.8 g/dL (6.4-8.2)
[2022-03-15 06:19] LABS: Procalcitonin 0.6 ng/mL
[2022-03-15] MEDS: Levothyroxine 88 MCG TAB PO (06:36)
[2022-03-15] MEDS: Levothyroxine 100 MCG TAB PO (06:36)
[2022-03-15 07:18] VITALS: BP 113/75; TEMP 36.5; O2SAT 95
[2022-03-15 07:59] VITALS: BP 107/47; PULSE 73; RESP 18; TEMP 36.9; O2SAT 94
[2022-03-15] MEDS: Memantine 5 MG TAB 10 MG PO (08:23)
[2022-03-15] MEDS: Aspirin E.C. 81 MG TABEC PO (08:24)
[2022-03-15] MEDS: Insulin Aspart 300 UNITS/3 ML PEN SC (08:24)
[2022-03-15] MEDS: Lactobacillus Acidophilus CAP 1 CAP PO (08:24)
[2022-03-15 08:45] VITALS: O2SAT 91
[2022-03-15] MEDS: Magnesium Oxide 400 MG TAB PO (08:52)
--- NOTE | 2022-03-15 10:42 | W.PM.DS.N ---
Date of service: 03/15/22 Time of Service: 10:43 DS: Diagnosis Discharge Diagnosis (1) Volume overload: Status: Resolved Asessment and Plan: Patient initially was in septic shock required aggressive IV fluid hydration and norepinephrine for stabilization of her blood pressures. She was weaned off the norepinephrine after 24 hours. However she developed hypervolemia and required IV diuretics. At the time of discharge her weight was 90 kg and her BUN was 28 creatinine 0.9. Electrolytes were within normal limits. 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 Is recommended she be maintained on supplemental oxygen at night. She requires 2 L/min while sleeping. (2) Decubitus skin ulcer: Status: Acute Asessment and Plan: Patient has a small skin abrasion over her buttocks. She has good capillary refill no discharge and no deep ulceration. Recommend that she have a barrier cream on her buttocks that nursing staff turn her frequently from side to side to offload pressure on her buttocks. (3) Elevated troponin I level: Status: Resolved Asessment and Plan: Patient had transient rise in her troponin which peaked at 122 on 03/11/2022 and by the next day on 03/12/2022 a decline down to 78. EKG demonstrated sinus rhythm with nonspecific anterior T wave changes read as probable anterior infarct indeterminate age. However an echocardiogram was performed and although it was technically limited study her left ventricle appeared to be grossly normal in size and thickness with an estimated ejection fraction of 50 to 55% with no segmental wall motion abnormalities identified. RV was not well visualized. There was no structurally or hemodynamically significant valvular disease. (4) Mobitz type I Wenckebach atrioventricular block: Status: Resolved Asessment and Plan: Patient is transient Mobitz type I AV block associated with vagal episode during one of her feedings in which she had a choking bowel. There is no aspiration of food. She was monitored for couple days longer and found to have no further AV conduction other than her baseline first-degree AV block. (5) Obstructive uropathy: Status: Acute Asessment and Plan: Patient presented to the emergency department at [facility] with an obstructive uropathy with 2 distal left ureteral stones for which she underwent cystoscopy ureteroscopy and stenting performed by Dr. Villagomez. Patient later developed septic shock and was transferred to [facility] where she was resuscitated with IV fluids and norepinephrine and broad-spectrum antibiotics. Initially she was treated with Zosyn and vancomycin which was then downgraded to Rocephin 2 g daily after we found out that her initial urine culture grew E. coli at [facility]. He was found to be sensitive to amikacin, aztreonam, cefepime, cefotaxime, ceftazidime, ceftriaxone, ciprofloxacin, ertapenem, gentamicin, imipenem, Levaquin, meropenem, minocycline, nitrofurantoin, Zosyn, tetracycline, tigecycline, tobramycin, Bactrim. He was only resistant to amoxicillin clavulanate and ampicillin and cefazolin with intermediate sensitivity to cefoxitin. Patient was initially treated with vancomycin and Zosyn although she only received 24 hours of vancomycin to Zosyn was continued from 03/08/2022 until 03/11/2022 and thereafter she was treated from 03/11/2022 until discharged with Rocephin 2 g IV daily. Patient initially had a white count 28,800 at [facility]. Upon transfer to [facility] her white count was 23,000 and progressively declined over the next few days while on antibiotics. By 03/12/2022 her white count was down to 10,000 and at discharge was down to 6800. Likewise her other inflammatory markers improved her procalcitonin level was 4.6 on admission had declined to 0.6 at discharge. CRP was elevated at 18.8 on admission and at discharge was still elevated but had declined 8.75. Patient is remained afebrile. Plan is to continue on ciprofloxacin 500 mg orally twice a day for at least another 7 days or until she is seen by Dr. Villagomez. Please obtain repeat EKG after starting Ciprofloxacin to monitor QTC prolongation. This should be done in 24 to 48 hr after Cipro has been started. (6) UTI (urinary tract infection): Status: Acute Asessment and Plan: As above (7) Nephrolithiasis: Status: Chronic Asessment and Plan: Patient is status post cystoscopy ureteroscopy on 03/07/2022 with removal of 2 distal ureteral stents from the left distal ureter. Patient has a Guzman catheter in which will remain. She has a stent in her distal left ureter which will be removed by Dr. Villagomez when she sees them. She has a follow-up with Dr. Villagomez on March 22, 2022 at 3 PM. (8) Nocturnal hypoxia: Status: Acute Asessment and Plan: Will patient's daytime hypoxia has resolved with diuresis she still has nocturnal hypoxia probably related to JESSICA/OHS. Is recommended patient have supplemental oxygen at 2 L/min while asleep. (9) Type 2 diabetes mellitus: Status: Acute Asessment and Plan: Diabetes was readily controlled with basal bolus insulin. Blood sugars are running between 150 and 200. She may need further adjustment but this can be achieved at the [facility] by her primary care provider. (10) DVT prophylaxis: Status: Resolved Asessment and Plan: Patient was maintained on DVT prophylaxis throughout her hospital stay. (11) Discharge planning issues: Status: Resolved Asessment and Plan: Patient is discharged to [facility] to the care of the medical service representative. Patient is in markedly improved condition and her sepsis is resolved. She still needs follow-up with Dr. Villagomez for removal and Guzman catheter removal of the distal left ureteral stent. Discharge Plan Disposition Patient Disposition: Senior Living Facility(SNF) Condition: Good Discharge Details Reason For Visit: Septic Shock Complicated UTI, Obstructive Uropathy Admit Date/Time: 03/08/22 15:03 Admit Provider: Edith Clay Attending Provider: Edith Clay Hospital Course Hospital Course: See above for details. Patient was transferred from [facility] on 03/08/2022 and septic shock secondary to urosepsis from obstructive uropathy from 2 distal left ureteral stones which were removed by cystoscopy ureteroscopy by Dr. Villagomez. Reportedly her blood culture showed no growth but urine cultures grew E. coli which was sensitive to most antibiotics tested. Patient responded to aggressive IV fluid hydration but did require norepinephrine for hemodynamic support and initially was treated with broad-spectrum antibiotics including Zosyn and vancomycin but after the first couple days was switched over to Rocephin 2 g daily. Patient did require diuresis due to volume overload related to her initial resuscitation. Patient developed superficial abrasion on her buttocks which was addressed by wound care nurse. Patient did require CVC catheter when she was on vasopressors. CVC catheter was removed for left infraclavicular space. Home Meds and New Rx's Prescriptions: New ciprofloxacin HCl [Cipro] 500 mg tablet 500 mg PO BID Qty: 14 0RF Continued acetaminophen 500 mg Tablet 1,000 mg PO Q6H PRN aspirin 81 mg Tablet,Chewable 81 mg PO DAILY donepezil 5 mg Tablet 5 mg PO QHS quetiapine 25 mg Tablet 25 mg PO QHS sennosides [senna] 8.6 mg Tablet 8.6 mg PO BID sertraline 50 mg Tablet 50 mg PO HS insulin lispro 100 unit/mL Insulin Pen 1 sliding scale dose SUBCUT AC & HS memantine 5 mg Tablet 10 mg PO BID levothyroxine 100 mcg Capsule 100 mcg PO DAILY ondansetron HCl 4 mg/2 mL Syringe 4 mg IV Q6H PRN PRN polyethylene glycol 3350 4 gram Powder In Packet 17 g PO DAILY PRN PRN levothyroxine 88 mcg Tablet 88 mcg PO DAILY Discontinued fentanyl citrate (PF)-0.9%NaCl 50 mcg/5 mL (10 mcg/mL) Syringe 25 mcg IV Q5-6M PRN sodium chloride 0.9 % (flush) [Normal Saline Flush] Syringe Q6-12H Discharge Instructions Referrals: Larry Villagomez MD [ CONSULTING PHYSICIAN] - 03/22/22 3:00 pm Activity:: Activity as Tolerated Equipment/Supplies:: No Equipment Needed Diet:: Carb Counting Discharge Orders Discharge Orders: Discharge Order (Routine); Ordered 03/15/22 Ordered By: Cody Foster DS: Summary Time Spent with Patient providing and/or coordinating discharge services: Greater than 30 minutes Specific discharge activities: Interview/exam of patient; review of discharge instructions, completion of prescriptions/discharge instructions; discussion w/ nursing and CM; documentation of hospital visit Status at Discharge Functional status at discharge: bed bound Overall status at discharge: patient is back to baseline Mental Status: other (Patient has Down syndrome with limited cognition but she is alert ) Speech and Movement: speech and movement normal Mood: other (Patient has Down syndrome with limited cognition but she is alert ) Affect: normal affect Exam Narrative Exam Narrative: Raysa has been awake and alert and oriented to person and interact with the staff although when I went into the room she was napping. She is in no acute distress. Lungs are clear to auscultation Chest wall she has a bandage over the left infraclavicular space where previous CVC line had been. Heart regular rate and rhythm Abdomen soft nondistended normal bowel sounds Extremities without edema Guzman catheter draining clear yellow urine Psych Mental Status: other (Patient has Down syndrome with limited cognition but she is alert ) Speech and Movement: speech and movement normal Mood: other (Patient has Down syndrome with limited cognition but she is alert ) Affect: normal affect DS: Data Vitals/I&O Vitals and I&O: Vital Signs Temperature 36.9 C 03/15/22 07:59 Temperature Source Temporal Artery Scan 03/15/22 07:59 Pulse 73 03/15/22 07:59 Pulse Rhythm Regular 03/15/22 08:35 Pulse 83 03/13/22 10:01 Respiratory Rate 18 03/15/22 07:59 Respiratory Effort Non-Labored 03/15/22 08:35 Respiratory Depth Normal 03/15/22 08:35 Respiratory Pattern Normal 03/15/22 08:35 Blood Pressure 107/47 L 03/15/22 07:59 Blood Pressure Mean 75 03/14/22 17:06 Blood Pressure Position Supine 03/13/22 08:30 Pulse Oximetry 91 L 03/15/22 08:45 Oxygen Delivery Method Room Air 03/15/22 08:45 Oxygen Flow Rate 0 03/15/22 08:45 Pain Level 0 03/15/22 07:59 Comment 03/13/22 03:15 Intake & Output 03/14/22 03/14/22 03/15/22 11:59 23:59 11:59 Intake Total 800 / 850 50 / 850 350 / 350 Output Total 2235 / 3060 825 / 3060 1055 / 1055 Balance -1435 / -2210 -775 / -2210 -705 / -705 Weight 90 kg Intake: Oral 800 / 850 50 / 850 350 / 350 Output: Urine 2235 / 3060 825 / 3060 1055 / 1055 Other: Urine Color Yellow Yellow Light Livier Urine Appearance Clear Clear Clear Sediment Sediment Mucous Threads Urine Odor Strong Stool Size Moderate Smear Stool Characteristics Soft Soft Formed Data Completed and Pending Labs on day of discharge: Labs from last 24 hours 03/15/22 03/15/22 03/15/22 10:18 05:35 05:35 WBC 6.80 RBC 3.56 L Hgb 12.3 Hct 36.3 MCV 102 H MCH 34.6 H MCHC 33.9 RDW 14.3 Plt Count 322 MPV 10.3 Immature Gran % 0.6 Neutrophils % 67.3 Lymphocytes % 23.5 Monocytes % 4.1 Eosinophils % 3.5 Basophils % 1.0 Nucleated RBC % 0.0 Absolute Neutrophils 4.57 Absolute Lymphocytes 1.60 Absolute Monocytes 0.28 Absolute Eosinophils 0.24 Absolute Basophils 0.07 Sodium Potassium Chloride Carbon Dioxide Anion Gap BUN Creatinine Est GFR (CKD-EPI 2020) Glucose Calcium Magnesium Total Bilirubin AST ALT Alkaline Phosphatase C-Reactive Protein Total Protein Albumin Procalcitonin 0.6 Urine Color Pending Urine Clarity Pending Urine pH Pending Ur Specific [place] Pending Urine Protein Pending Urine Ketones Pending Urine Blood Pending Urine Nitrite Pending Urine Bilirubin Pending Urine Urobilinogen Pending Ur Leukocyte Esterase Pending Urine Glucose Pending 03/15/22 05:35 WBC RBC Hgb Hct MCV MCH MCHC RDW Plt Count MPV Immature Gran % Neutrophils % Lymphocytes % Monocytes % Eosinophils % Basophils % Nucleated RBC % Absolute Neutrophils Absolute Lymphocytes Absolute Monocytes Absolute Eosinophils Absolute Basophils Sodium 133 L Potassium 4.1 Chloride 97 L Carbon Dioxide 35.0 H Anion Gap 1.0 L BUN 28 H Creatinine 0.9 Est GFR (CKD-EPI 2020) 72.28 Glucose 188 H Calcium 8.9 Magnesium 2.0 Total Bilirubin 0.2 AST 23 ALT 22 Alkaline Phosphatase 157 H C-Reactive Protein 8.75 H Total Protein 7.8 Albumin 2.2 L Procalcitonin Urine Color Urine Clarity Urine pH Ur Specific [place] Urine Protein Urine Ketones Urine Blood Urine Nitrite Urine Bilirubin Urine Urobilinogen Ur Leukocyte Esterase Urine Glucose PFSH All Active Problems (Updated 03/15/22 @ 11:09 by Cody Foster MD) Decubitus skin ulcer (Acute) Respiratory failure with hypoxia (Acute) Nocturnal hypoxia (Acute) Nephrolithiasis (Chronic) Obstructive uropathy (Acute) UTI (urinary tract infection) (Acute) Urinary incontinence (Acute) Type 2 diabetes mellitus (Acute) Psoriasis (Chronic) Pain in right knee (Acute) Impairment of balance (Acute) Hypothyroidism (Chronic) Hyperlipidemia (Acute) Hyperglycemia (Acute) Hypercarbia (Acute) Falls (Acute) Dementia with behavioral disturbance (Acute) Complete trisomy 21 syndrome (Acute) Blepharitis (Acute) Surgical History H/O abdominal surgery Family History Other ALS (amyotrophic lateral sclerosis) Social History Smoking/Tobacco Use Status: Never Smoking risk assessment performed?: Yes Alcohol Intake: never Drug use: Never Time Spent with Patient Time Spent with Patient: 45-69 minutes Time was spent: preparing to see the patient(eg.review tests), ordering medications,tests, procedures, referring, communicating with other health foster care social worker, indepentently interpreting results and care coordination
[2022-03-15 10:45] LABS: Bilirubin Negative (Negative); Blood Large (Negative); Clarity Cloudy (Clear); Glucose Negative (Negative); Ketones Negative (Negative); Leukocyte Esterase Moderate (Negative); Nitrite Negative (Negative); Specific Gravity 1.015 (1.005-1.025); Urobilinogen 0.2 EU/dL (Up TO 0.2); pH 8.5 (5-8)
[2022-03-15 11:01] LABS: Bacteria Moderate HPF (Negative); C & S Indicated? Yes; Casts Negative LPF (Negative); Crystals Negative HPF (Negative); Epithelial Cells Few HPF (Negative); Mucus Trace (Negative); Other Cells Moderate Yeast (Negative)
--- NOTE | 2022-03-15 11:01 | PDOC.CMDIS ---
- If Service Date Differs Date of service: 03/15/22 Time of Service: 11:01 LACE Index Scoring Tool - Questions: Length of Stay (in days): 7 - 13 Acuity (Admit via E.D.?): No Comorbidities: Diabetes w/o Complication, Dementia E.D. Visits: 1 - Answers: Total Score: 11 Risk of Readmission: High Risk Care Management Discharge Reason for Hospitalization: Septic shock complicated UTI, obstructive uropathy Discharge Plan: Raysa will return to [facility] and will transport via EMS through [facility]. She will follow up with facility providers and discharge plan of care. Patient/Family Education Needs: Review discharge instructions with facility through RN to RN prior to discharge, as well as guardian. Services Needed at Discharge: Correction Facility
== END 2022-03-15 12:15 | disposition skilled nursing facility (03) | DRG 871 ==
PROVIDERS: Internal Medicine; Student in an Organized Health Care Education/Training Program; Admitting Provider Internal Medicine; Visit Provider Internal Medicine
DX: A41.9 Sepsis, unspecified organism (principal); R65.21 Severe sepsis with septic shock; F03.918 Unspecified dementia, unspecified severity, with other behavioral disturbance; N13.6 Pyonephrosis; I24.8 Other forms of acute ischemic heart disease; E86.0 Dehydration; Q90.9 Down syndrome, unspecified; L40.9 Psoriasis, unspecified; R32 Unspecified urinary incontinence; E03.9 Hypothyroidism, unspecified; E78.5 Hyperlipidemia, unspecified; E11.65 Type 2 diabetes mellitus with hyperglycemia; R29.6 Repeated falls; R47.9 Unspecified speech disturbances; R59.0 Localized enlarged lymph nodes; I44.1 Atrioventricular block, second degree; R31.0 Gross hematuria; G47.33 Obstructive sleep apnea (adult) (pediatric); E87.79 Other fluid overload; S30.810A Abrasion of lower back and pelvis, initial encounter; B96.20 Unspecified Escherichia coli [E. coli] as the cause of diseases classified elsewhere; X58.XXXA Exposure to other specified factors, initial encounter
CPT/HCPCS: 36415; 36591; 71275; 80048; 80051; 80053; 80076; 82805; 84145; 87081; 87635; 93306; 97163; J1650; 36600; 71045; 81003; 81015; 83605; 83735; 83880; 84443; 84484; 85025; 85379; 86140; 87086; 93005; 93010; 94640; 99232; 99233; 99238; 99291; J1885; J1940; J1941; J2405; J2543; J7613